=== PATIENT | female | born 1970 | race Caucasian/White ===

== ENCOUNTER 2021-07-14 10:34 | Emergency (ER) | payer OTHER, SELFPAY ==
[2021-07-14 10:55] VITALS: BP 115/64; PULSE 76; RESP 16; TEMP 36.9; O2SAT 99; BMI 15.6
[2021-07-14 11:30] VITALS: BP 116/71; PULSE 73; O2SAT 99
[2021-07-14 11:51] LABS: Basophils # 0.1 K/mm3 (0-0.2); Basophils % 0.6 % (0.1-2.0); Eosinophils # 0.1 K/mm3 (0.0-0.4); Hematocrit 29.5 % (37.0-47.0); Hemoglobin 9.8 g/dL (12.2-16.2); Lymphocytes # 1.3 K/mm3 (0.7-4.5); Lymphocytes % 14.6 % (10-50); Mean Corpuscular HGB Conc 33.4 g/dL (31.8-35.4); Mean Corpuscular Hemoglobin 31.2 pg (27.0-31.2); Mean Corpuscular Volume 93.5 fl (81-99); Mean Platelet Volume 7.9 fl (7.4-10.4); Monocytes # 0.6 K/mm3 (0.1-1.0); Monocytes % 6.5 % (1.7-9.3); Neutrophils # 6.9 K/mm3 (1.8-7.8); Neutrophils % 77.3 % (37.0-80.0); Platelet Count 152 K/mm3 (142-424); Red Blood Count 3.16 M/mm3 (4.20-5.40); Red Cell Distribution Width 19.8 % (11.5-17.5); White Blood Count 8.9 K/mm3 (4.8-10.8)
[2021-07-14 11:53] LABS: Alanine Aminotransferase 21 U/L (12-78); Albumin Level 3.4 g/dl (3.5-5.0); Albumin/Globulin Ratio 1.1 (1.1-1.8); Alkaline Phosphatase 256 U/L (38-126); Anion Gap 8.5 mEq/L (5-15); Aspartate Amino Transferase 80 U/L (14-36); Bilirubin,Total 1.9 mg/dl (0.2-1.3); Blood Urea Nitrogen 18 mg/dl (7-17); Calcium 8.1 mg/dl (8.4-10.2); Carbon Dioxide 32 mmol/L (22.0-30.0); Chloride 91 mmol/L (98-107); Creatinine Clearance Estimated 48 mL/min (50-200); Estimated Glomerular Filt Rate 59 ml/min (>60); GFR (African American) 71 ML/MIN (>60); Globulin 3.2 g/dL (1.3-3.2); Glucose 100 mg/dl (74-100); Sodium 129 mmol/L (136-145); Total Protein,Serum 6.6 g/dl (6.3-8.2)
[2021-07-14 11:56] LABS: Potassium 2.5 mmoL/L (3.5-5.1)
--- NOTE | 2021-07-14 11:58 | PC.NURSE ---
potassium 2.5 repeated and verified with lab. Notified MD
--- NOTE | 2021-07-14 12:06 | HMH.EDGENADL ---
ED Disposition Clinical Impression: Alcoholic cirrhosis of liver with ascites, Hypokalemia, Hypomagnesemia Disposition: Home, Self-Care Condition on Discharge: Fair Additional Instructions: Return tomorrow 9 AM to radiology for paracentesis. Take an extra potassium tablet each day for the next week. Magnesium as prescribed. You are being provided with a list of physicians available for follow-up of your condition. Please call a physician on this list to arrange a follow-up appointment as soon as possible. Follow-up with Dr. Farrell, gynecology, for your left breast problems. Prescriptions: Magnesium Oxide 400 mg PO DAILY #7 tab Transmission Status: Pending to [id number] Referrals: Provider,Referral, [Primary Care Provider] - - Critical Care Critical Care Time: No Attestation: On 07/14/21, the high probability of a clinically significant, sudden or life threatening deterioration of the following system(s) required my full and direct attention, intervention and personal management. The time I documented below is in addition to time spent performing reported procedures but includes the following listed in this critical care notation. Medical Decision Making - Adalid Inquiry Pt receiving controlled substance: No Vital Signs: 07/14/21 10:55 07/14/21 11:30 Temperature 98.5 F Temperature Source Oral Pulse Rate 73 Pulse Rate [Left Radial] 76 Respiratory Rate 16 Blood Pressure 116/71 Blood Pressure [Right Arm] 115/64 Blood Pressure Mean [Right Arm] 81 02 Sat by Pulse Oximetry 99 99 Oxygen Delivery Method Room Air - Lab Data Lab Results 07/14/21 11:25: WBC 8.9, RBC 3.16 L, Hgb 9.8 L, Hct 29.5 L, MCV 93.5, MCH 31.2, MCHC 33.4, RDW 19.8 H, Plt Count 152, MPV 7.9, Neut % (Auto) 77.3, Lymph % (Auto) 14.6, [place] % (Auto) 6.5, Eos % (Auto) 1.0, Baso % (Auto) 0.6, Neut # (Auto) 6.9, Lymph # (Auto) 1.3, [place] # (Auto) 0.6, Eos # (Auto) 0.1, Baso # (Auto) 0.1 07/14/21 11:25: Sodium 129 L, Potassium 2.5 L*, Chloride 91 L, Carbon Dioxide 32 H, Anion Gap 8.5, BUN 18 H, Creatinine 1.00, Estimated Creat Clear 48, Estimated GFR 59, Est GFR ( Amer) 71, Glucose 100, Calcium 8.1 L, Total Bilirubin 1.9 H, AST 80 H, ALT 21, Alkaline Phosphatase 256 H, Total Protein 6.6, Albumin 3.4 L, Globulin 3.2, Albumin/Globulin Ratio 1.1 07/14/21 11:25: Magnesium 1.4 L Result diagrams: 07/14/21 11:25 07/14/21 11:25 Orders (Tests/Meds): ED MEDICATIONS Discontinued Medications Generic Name Dose Route Start Last Admin Trade Name Freq PRN Reason Stop Dose Admin Potassium Chloride 60 meq 07/14/21 12:22 07/14/21 12:46 Potassium Chloride 20meq Tab PO 07/14/21 12:23 60 meq ONCE ONE Administration ORDERS Category Date Time Status PT/INR [Prothrombin Time INR] Stat Lab 07/14/21 11:25 Received - Physician Consults Physician Consulted: Willi Time: 12:45 Reason -: Surgical Eval/Care Comment/Response: Recommend stat paracentesis to be done by radiology under ultrasound guidance rather than emergent paracentesis by him. - Reevaluation(s) Time: 13:11 Reevaluation #1: Patient was standing and getting dressed, states her right is going to be here in 2 minutes and would like to be discharged. Medical Decision Narrative: 12:15 PM: Called radiology. Physician assistant professor of biochemistry for procedures is here on Sunday, Sunday, Sunday from 11:52. Can schedule paracentesis for tomorrow. Call also placed to general surgery. General Adult HPI - General Chief complaint: PAIN Stated complaint: abd pain,left breast, no accident Time Seen by Provider: 07/14/21 12:06 Mode of Arrival: Ambulatory Limitations: No Limitations Description of Symptoms (Recalled from ER Triage Doc. by RN): pt to ed c/o left breast pain and abd pain. pt states she has cirrhosis and gets a paracentisis every two weeks. pt reports lower abd pain and swelling. pt states she just moved here from [place] and has not establishe
[2021-07-14 12:17] LABS: Magnesium 1.4 mg/dl (1.6-2.3)
--- NOTE | 2021-07-14 12:17 | PC.NURSE ---
Called surgery suite for surgeon addiction social worker. BJ stated that Dr Márquez may be in surgery, but that she was sending him a message to return our call ANJANA.
[2021-07-14 13:11] LABS: INR 1.21 (0.9-1.1); Prothrombin Time 13.5 seconds (10.1-12.5)
[2021-07-14 13:14] VITALS: BP 120/78; PULSE 71; RESP 17; TEMP 36.9; O2SAT 99
== END 2021-07-14 13:36 | disposition home or self-care (01) ==
PROVIDERS: Emergency Provider Emergency Medicine
DX: K70.31 Alcoholic cirrhosis of liver with ascites (principal); N64.4 Mastodynia; E87.6 Hypokalemia; E83.42 Hypomagnesemia
CPT/HCPCS: 36415; 80053; 83735; 85025; 85610; 99282

== ENCOUNTER 2021-07-15 09:09 | Outpatient (CLI) | payer OTHER, SELFPAY ==
--- NOTE | 2021-07-15 09:16 | US_ITS ---
FINAL REPORT CLINICAL HISTORY: ASCITES FINDINGS: ULTRASOUND-GUIDED PARACENTESIS HISTORY: Ascites ATTENDING PHYSICIAN: Dr. Hodgson PHYSICIAN BRAND MGR: Rico Vásquez PA-C FINDINGS: After informed consent was obtained and timeout procedure performed, fluid was localized in the right lower quadrant under ultrasound guidance and marked on the skin appropriately. The patient was then prepped and draped in the usual sterile fashion and the skin was anesthetized with 1% lidocaine. An ultrasound guided paracentesis was then performed using a Turkel needle. Approximately6.7 liters of clear yellow fluid was removed. No fluid was sent to lab. The patient tolerated the procedure well and there were no immediate complications. IMPRESSION: Ultrasound guided right lower quadrant paracentesis as discussed above. Films reviewed , interpreted and dictated by Dr. Hodgson. Transcribed by Rico Vásquez PA-C. Reviewed, Interpreted and Dictated by Jason Hodgson III, MD Transcribed by ARGELIA Giles Authenticated by Jason Hodgson III, MD on 07/15/2021 11:37:49 AM [facility]
[2021-07-15 10:38] VITALS: BMI 14.7
[2021-07-15 11:11] LABS: Creatinine Clearance Estimated 65 mL/min (50-200); Estimated Glomerular Filt Rate 89 ml/min (>60); GFR (African American) 107 ML/MIN (>60)
[2021-07-15 11:45] VITALS: BP 99/74; PULSE 83; RESP 18; O2SAT 100
[2021-07-15 12:25] VITALS: BP 90/58; PULSE 83; RESP 18
== END 2021-07-15 12:25 | disposition home or self-care (01) ==
LOC: RAD 09:13 → INF 10:43
PROVIDERS: Visit Provider Emergency Medicine
DX: K70.31 Alcoholic cirrhosis of liver with ascites (principal)
CPT/HCPCS: 49083; 82565; 96365; P9047

== ENCOUNTER 2021-08-05 00:29 | Emergency (ER) | payer OTHER, SELFPAY ==
[2021-08-05 00:25] VITALS: BP 95/68; PULSE 97; RESP 18; TEMP 36.7; O2SAT 97; BMI 15.6
--- NOTE | 2021-08-05 00:31 | ECG_ITS ---
APPROVED REPORT Exam: Resting ECG HR:94 bpm ECG Measurements Heart Rate 94 AXES TX 152 P 53 QRSd 88 QRS 35 QT 360 T 69 QTc 412 Conclusion SINUS RHYTHM LOW QRS VOLTAGE IN EXTREMITY LEADS [QRS DEFLECTION < 0.5 mV IN LIMB LEADS] BORDERLINE ECG UNCONFIRMED REPORT Electronically signed by : Mohinder Trujillo MD 08/05/2021 16:01:59
[2021-08-05 00:36] VITALS: BMI 15.6
--- NOTE | 2021-08-05 00:37 | CT_ITS ---
PROCEDURE INFORMATION: Exam: CT Abdomen And Pelvis With Contrast Exam date and time: 08/05/2021 12:37 AM Age: 51 years old Clinical indication: Patient HX: Vomiting that started today. PT states she had fluid drained from abdomen 2 weeks ago, has since gotten worse. Also states she is scheduled to have fluid drained again later today. ; Additional info: Vomitting TECHNIQUE: Imaging protocol: Computed tomography of the abdomen and pelvis with contrast. Radiation optimization: All CT scans at this facility use at least one of these dose optimization techniques: automated exposure control; mA and/or kV adjustment per patient size (includes targeted exams where dose is matched to clinical indication); or iterative reconstruction. Contrast material: ISOVUE; Contrast volume: 75 ml; Contrast route: IV; COMPARISON: US PARACENTESIS 07/15/2021 9:25 AM FINDINGS: Heart: Atherosclerotic calcification of the visualized proximal left anterior descending coronary artery. Mediastinal space: Fluid distention of the visualized distal esophagus, possibly reflux and/or dysmotility. Liver: Nodular hepatic peripheral contour, compatible with cirrhosis. Gallbladder and bile ducts: Cholelithiasis, without CT evidence of acute cholecystitis. Pancreas: Normal. Spleen: Splenic calcifications, compatible with prior granulomatous disease. Mild splenomegaly. Adrenal glands: Normal. No mass. Kidneys and ureters: Minimal lobular area of cortical thinning of the right kidney, likely scarring. Stomach and bowel: Colonic diverticulosis. Moderate, diffuse wall thickening of the entire colon, likely edema related to ascites and/or hypoproteinemic state. Multiple loops of nondilated, gas and fluid-filled small bowel, possibly mild enteritis. Appendix: Appendix normal. Intraperitoneal space: Large volume ascites, secondary to cirrhosis. Vasculature: Atherosclerotic disease of the abdominal aorta and iliac arteries. Phleboliths within the pelvis. Lymph nodes: Unremarkable. No enlarged lymph nodes. Urinary bladder: Unremarkable as visualized. Reproductive: Unremarkable as visualized. Bones/joints: No acute abnormality. Soft tissues: Normal. IMPRESSION: 1. Cirrhosis, with associated splenomegaly and large volume ascites. 2. Fluid distention of the visualized distal esophagus, possibly reflux and/or dysmotility. 3. Moderate, diffuse wall thickening of the entire colon, likely edema related to ascites and/or hypoproteinemic state. 4. Multiple loops of nondilated, gas and fluid-filled small bowel, possibly mild enteritis.
--- NOTE | 2021-08-05 00:48 | HMH.EDNVD ---
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 The time I documented below is in addition to time spent performing reported procedures but includes the following listed in this critical care notation. Total Critical Care Time: 60 Vital system(s) involved:: Shock (Hemorrhage) My critical care processes included: Assessment & monitoring of V/S, Initial and Re-exams, Coordinating Care, Medication Orders and management, Documentation Medical Decision Making - Medical Records Medical records reviewed: Yes: I reviewed the patient's medical records. - Adalid Inquiry Pt receiving controlled substance: No Vital Signs: 08/05/21 00:25 08/05/21 00:55 08/05/21 02:00 Temperature 98.0 F Temperature Source Oral Pulse Rate 99 H 91 H Pulse Rate [Right] 97 H Respiratory Rate 18 Blood Pressure 100/65 L 95/66 L Blood Pressure [Right Arm] 95/68 L Blood Pressure Mean Blood Pressure Mean [Right Arm] 77 02 Sat by Pulse Oximetry 97 99 100 Oxygen Delivery Method Room Air Room Air 08/05/21 02:30 Temperature Temperature Source Pulse Rate 98 H Pulse Rate [Right] Respiratory Rate Blood Pressure 109/76 L Blood Pressure [Right Arm] Blood Pressure Mean 87 Blood Pressure Mean [Right Arm] 02 Sat by Pulse Oximetry 100 Oxygen Delivery Method - Lab Data Lab results reviewed: Yes: I reviewed the patient's lab results. Lab Results 08/05/21 00:40: WBC 12.6 H, RBC 3.10 L, Hgb 9.6 L, Hct 30.8 L, MCV 99.4 H, MCH 30.9, MCHC 31.1 L, RDW 17.9 H, Plt Count 322, MPV 7.8, Neut % (Auto) 78.6, Lymph % (Auto) 14.2, [place] % (Auto) 5.7, Eos % (Auto) 0.2, Baso % (Auto) 1.4, Neut # (Auto) 9.9 H, Lymph # (Auto) 1.8, [place] # (Auto) 0.7, Eos # (Auto) 0.0, Baso # (Auto) 0.2, ESR 71 H 08/05/21 00:40: Sodium 134 L, Potassium 3.4 L, Chloride 98, Carbon Dioxide 24, Anion Gap 15.4 H, BUN 13, Creatinine 1.00, Estimated Creat Clear 48, Estimated GFR 59, Est GFR ( Amer) 71, Glucose 102 H, Calcium 7.9 L, Total Bilirubin 1.3, AST 82 H, ALT 22, Alkaline Phosphatase 243 H, C-Reactive Protein 17.9 H, Total Protein 6.6, Albumin 3.4 L, Globulin 3.2, Albumin/Globulin Ratio 1.1, Amylase 126 H, Lipase 183, Procalcitonin 0.153 08/05/21 00:40: Ammonia < 9 L 08/05/21 00:40: Lactate 2.7 H 08/05/21 00:40: PT 12.5, INR 1.12 H 08/05/21 00:40: Magnesium 1.6 08/05/21 01:55: Gastric Occult Blood Positive 08/05/21 02:31: SARS-CoV-2 (PCR) Not detected, Influenza A Untype (PCR) Not detected, Influenza Type B (PCR) Not detected Result diagrams: 08/05/21 00:40 08/05/21 00:40 Orders (Tests/Meds): ED MEDICATIONS Generic Name Dose Route Start Last Admin Trade Name Jeredq PRN Reason Stop Dose Admin Sodium Chloride 1,000 mls @ 999 mls/hr 08/05/21 00:45 08/05/21 01:02 Sod Chlor 0.9% 1000ml Bag IV 08/05/21 01:45 999 mls/hr .Q1H1M DEREK Administration Octreotide Acetate 500 mcg/ 255 mls @ 25.5 mls/hr 08/05/21 03:45 08/05/21 03:38 Sodium Chloride IV 09/04/21 03:44 25.5 mls/hr .Q10H DEREK Administration 50 MCG/HR Ceftriaxone Sodium 1 gm/ 50 mls @ 100 mls/hr 08/05/21 03:45 08/05/21 03:37 Sodium Chloride IV 08/19/21 03:44 100 mls/hr Q24H DEREK Administration Sodium Chloride 8 ml 08/05/21 00:47 Sodium Chloride 0.9% 10ml Vial IV 09/04/21 00:46 NEEDED PRN dilute pepcid Discontinued Medications Generic Name Dose Rout
--- NOTE | 2021-08-05 00:53 | PC.NURSE ---
contacted [facility] to request records for procedure dine 2 weeks ago
[2021-08-05 00:55] VITALS: BP 100/65; PULSE 99; O2SAT 99
[2021-08-05 00:57] LABS: Basophils # 0.2 K/mm3 (0-0.2); Basophils % 1.4 % (0.1-2.0); Eosinophils % 0.2 % (0.1-12.0); Hematocrit 30.8 % (37.0-47.0); Hemoglobin 9.6 g/dL (12.2-16.2); Lymphocytes # 1.8 K/mm3 (0.7-4.5); Lymphocytes % 14.2 % (10-50); Mean Corpuscular HGB Conc 31.1 g/dL (31.8-35.4); Mean Corpuscular Hemoglobin 30.9 pg (27.0-31.2); Mean Corpuscular Volume 99.4 fl (81-99); Mean Platelet Volume 7.8 fl (7.4-10.4); Monocytes # 0.7 K/mm3 (0.1-1.0); Monocytes % 5.7 % (1.7-9.3); Neutrophils # 9.9 K/mm3 (1.8-7.8); Neutrophils % 78.6 % (37.0-80.0); Platelet Count 322 K/mm3 (142-424); Red Cell Distribution Width 17.9 % (11.5-17.5); White Blood Count 12.6 K/mm3 (4.8-10.8)
[2021-08-05 01:01] LABS: Chloride 98 mmol/L (98-107); Potassium 3.4 mmoL/L (3.5-5.1); Sodium 134 mmol/L (136-145)
[2021-08-05 01:04] LABS: Alanine Aminotransferase 22 U/L (12-78); Alkaline Phosphatase 243 U/L (38-126); Amylase 126 U/L (30-110); Anion Gap 15.4 mEq/L (5-15); Aspartate Amino Transferase 82 U/L (14-36); Bilirubin,Total 1.3 mg/dl (0.2-1.3); Blood Urea Nitrogen 13 mg/dl (7-17); Carbon Dioxide 24 mmol/L (22.0-30.0); Creatinine Clearance Estimated 48 mL/min (50-200); Estimated Glomerular Filt Rate 59 ml/min (>60); GFR (African American) 71 ML/MIN (>60)
[2021-08-05 01:05] LABS: Albumin Level 3.4 g/dl (3.5-5.0); Albumin/Globulin Ratio 1.1 (1.1-1.8); Calcium 7.9 mg/dl (8.4-10.2); Globulin 3.2 g/dL (1.3-3.2); Glucose 102 mg/dl (74-100); INR 1.12 (0.9-1.1); Lipase 183 U/L (23-300); Magnesium 1.6 mg/dl (1.6-2.3); Prothrombin Time 12.5 seconds (10.1-12.5); Total Protein,Serum 6.6 g/dl (6.3-8.2)
[2021-08-05 01:06] LABS: Ammonia < 9 umol/L (9-30)
[2021-08-05 01:10] LABS: C-Reactive Protein 17.9 mg/L (0-4)
[2021-08-05 01:15] LABS: Lactic Acid 2.7 mmol/L (0.7-2.1)
[2021-08-05 01:33] LABS: Erythrocyte Sedimentation Rate 71 mm/hr (0-20)
--- NOTE | 2021-08-05 01:36 | XR_ITS ---
PROCEDURE INFORMATION: Exam: XR Chest Exam date and time: 08/05/2021 1:36 AM Age: 51 years old Clinical indication: Other: Vomiting TECHNIQUE: Imaging protocol: XR of the chest. Views: 1 view. COMPARISON: CT ABDOMEN PELVIS W CON 08/05/2021 1:35 AM FINDINGS: Lungs: Probable calcified granuloma within the right midlung zone. Minimal bibasilar atelectasis. Pleural spaces: Unremarkable. No pleural effusion. No pneumothorax. Heart/Mediastinum: Normal. Bones/joints: No acute abnormality. IMPRESSION: No acute cardiopulmonary abnormality.
[2021-08-05 01:43] LABS: Procalcitonin 0.153 ng/mL (0.0-2.0)
[2021-08-05 02:00] VITALS: BP 95/66; PULSE 91; O2SAT 100
[2021-08-05 02:06] LABS: Occult Blood,Gastric Fluid Positive (Negative)
[2021-08-05 02:30] VITALS: BP 109/76; PULSE 98; O2SAT 100
[2021-08-05 02:35] LABS: Coronavirus 19, PCR Not Detected (NotDetected); Influenza A, PCR Not Detected (NotDetected); Influenza B, PCR Not Detected (NotDetected)
--- NOTE | 2021-08-05 03:26 | PC.NURSE ---
called transfer center and they are RED alert and not accepting any pts @ this time
--- NOTE | 2021-08-05 03:33 | PC.NURSE ---
edda on phone with dr jain @ this time. pt placed on waiting list.
--- NOTE | 2021-08-05 04:01 | PC.NURSE ---
0304 pt called out for assistance. pt had vomited multiple large blood clots. pt was changed, the bedding was also changed. pt was then given warm blankets and resting
[2021-08-05 04:07] VITALS: BP 103/78; PULSE 100; RESP 20; TEMP 37.1; O2SAT 99
[2021-08-05 04:09] VITALS: BP 109/80; PULSE 100; RESP 18; TEMP 36.7; O2SAT 99
== END 2021-08-05 04:37 | disposition short-term general hospital (02) ==
PROVIDERS: Emergency Provider Emergency Medicine
DX: R18.8 Other ascites (principal); K74.60 Unspecified cirrhosis of liver; Z79.1 Long term (current) use of non-steroidal anti-inflammatories (NSAID); Z79.51 Long term (current) use of inhaled steroids; Z79.899 Other long term (current) drug therapy; Z88.1 Allergy status to other antibiotic agents; Z88.3 Allergy status to other anti-infective agents; Z88.8 Allergy status to other drugs, medicaments and biological substances
CPT/HCPCS: 71045; 74177; 80053; 82140; 82150; 82272; 83605; 83690; 83735; 84145; 85025; 85610; 85651; 86140; 93005; 96361; 96365; 96366; 96367; 96374; 96375; 96376; 99285; C9803; G0328; J0696; J2354; J2405; Q9967; U0003; U0005

== ENCOUNTER 2021-08-14 15:47 | Emergency (ER) | payer OTHER, SELFPAY ==
[2021-08-14] VITALS (9 sets, daily range): BP systolic 101–120; BP diastolic 73–85; PULSE 63–91; RESP 10–18; TEMP 36.8–37.3; O2SAT 98–100; BMI 15.6
--- NOTE | 2021-08-14 | ECG_ITS ---
APPROVED REPORT Exam: Resting ECG HR:75 bpm ECG Measurements Heart Rate 75 AXES MT 146 P 60 QRSd 78 QRS 30 QT 384 T 62 QTc 412 Conclusion SINUS RHYTHM LOW QRS VOLTAGE IN EXTREMITY LEADS [QRS DEFLECTION < 0.5 mV IN LIMB LEADS] BORDERLINE ECG UNCONFIRMED REPORT Electronically signed by : Mohinder Trujillo MD 08/15/2021 13:42:54
--- NOTE | 2021-08-14 16:00 | PC.NURSE ---
pt is sitting up in bed. Nurse is bedside. Tech is bedside. Patient was hooked up to cardiac monitoring and vital signs. Call light given to patient. Warm blanket also given to patient at this time.
--- NOTE | 2021-08-14 16:18 | HMH.EDGENADL ---
ED Disposition Clinical Impression: Ascites, Abdominal pain, Alcoholic cirrhosis of liver with ascites Disposition: Home, Self-Care Condition on Discharge: Fair Instructions: DI for Acute Abdominal Pain Referrals: Provider,Referral, [Primary Care Provider] - - Critical Care Critical Care Time: No Attestation: On 08/14/21, the high probability of a clinically significant, sudden or life threatening deterioration of the following system(s) required my full and direct attention, intervention and personal management. The time I documented below is in addition to time spent performing reported procedures but includes the following listed in this critical care notation. Medical Decision Making - Adalid Inquiry Pt receiving controlled substance: Yes Adalid was queried for this patient: No Risks and benefits of using a controlled substance: were discussed with pt by me Vital Signs: 08/14/21 15:48 08/14/21 15:59 08/14/21 16:00 Temperature 99.1 F Temperature Source Oral Pulse Rate 80 83 Pulse Rate [Right Radial] 91 H Respiratory Rate 18 17 14 Blood Pressure 115/77 101/76 L Blood Pressure [Right Arm] 115/77 Blood Pressure Mean [Right Arm] 89 Blood Pressure Source [Right Arm] Automatic Cuff Blood Pressure Position [Right Arm] Sitting 02 Sat by Pulse Oximetry 100 100 100 Oxygen Delivery Method Room Air Room Air Room Air 08/14/21 16:30 08/14/21 19:00 08/14/21 19:30 Temperature Temperature Source Pulse Rate 77 66 73 Pulse Rate [Right Radial] Respiratory Rate 13 10 L 11 L Blood Pressure 112/85 120/74 116/80 Blood Pressure [Right Arm] Blood Pressure Mean [Right Arm] Blood Pressure Source [Right Arm] Blood Pressure Position [Right Arm] 02 Sat by Pulse Oximetry 100 100 100 Oxygen Delivery Method Room Air Room Air Room Air 08/14/21 20:00 08/14/21 20:30 Temperature Temperature Source Pulse Rate 79 63 Pulse Rate [Right Radial] Respiratory Rate 12 13 Blood Pressure 115/73 115/76 Blood Pressure [Right Arm] Blood Pressure Mean [Right Arm] Blood Pressure Source [Right Arm] Blood Pressure Position [Right Arm] 02 Sat by Pulse Oximetry 100 100 Oxygen Delivery Method Room Air Room Air - Lab Data Lab Results 08/14/21 16:00: WBC 11.3 H, RBC 3.24 L, Hgb 10.1 L, Hct 32.5 L, MCV 100.4 H, MCH 31.2, MCHC 31.1 L, RDW 18.2 H, Plt Count 246, MPV 8.0, Neut % (Auto) 76.2, Lymph % (Auto) 12.6, [place] % (Auto) 9.5 H, Eos % (Auto) 0.8, Baso % (Auto) 1.0, Neut # (Auto) 8.6 H, Lymph # (Auto) 1.4, [place] # (Auto) 1.1 H, Eos # (Auto) 0.1, Baso # (Auto) 0.1 08/14/21 16:00: PT 13.6 H, INR 1.22 H, APTT 33.6 H 08/14/21 16:00: Sodium 126 L, Potassium 3.9, Chloride 98, Carbon Dioxide 20 L, Anion Gap 11.9, BUN 12, Creatinine 1.20 H, Estimated Creat Clear 40, Estimated GFR 48 L, Est GFR ( Amer) 58 L, Glucose 86, Calcium 7.7 L, Total Bilirubin 1.4 H, AST 63 H, ALT 22, Alkaline Phosphatase 257 H, Total Protein 6.6, Albumin 3.3 L, Globulin 3.3 H, Albumin/Globulin Ratio 1.0 L 08/14/21 16:00: Lactate 2.1 08/14/21 16:00: Lipase 95 08/14/21 16:44: SARS-CoV-2 (PCR) Not detected, Influenza A Untype (PCR) Not detected, Influenza Type B (PCR) Not detected 08/14/21 19:50: Lactate 1.7 08/14/21 20:05: Urine Color Yellow, Urine Appearance Clear, Urine pH 6.5, Ur Specific [place] 1.010, Urine Protein Negative, Urine Glucose (UA) Negative, Urine Ketones Negative, Urine Blood Trace-l, Urine Nitrate Negative, Urine Bilirubin Negative, Urine Urobilinogen 0.2, Ur Leukocyte Esterase Negative, Urine RBC 5-10, Urine WBC 3-5, Ur Squamous Epith Cells 5-10, Urine Bacteria Trace 08/14/21 20:39: Fluid Source Peritoneal fluid, Fluid Volume 24, Fluid Appearance Normal, Fluid RBC (Auto) < 10, Fld Tot Nucleated Cell 39, Fld Polynuclear WBCs % 0, Fld Mononuclear WBCs % 100 Result diagrams: 08/14/21 16:00 08/14/21 16:00 Orders (Tests/Meds): ED MEDICATIONS Generic Name Dose Route Start Last Admin Trade Name Freq PRN
--- NOTE | 2021-08-14 16:26 | CT_ITS ---
PROCEDURE INFORMATION: Exam: CT Abdomen And Pelvis With Contrast Exam date and time: 08/14/2021 4:26 PM Age: 51 years old Clinical indication: Bloating; Additional info: Abd pain and distention TECHNIQUE: Imaging protocol: Computed tomography of the abdomen and pelvis with contrast. Radiation optimization: All CT scans at this facility use at least one of these dose optimization techniques: automated exposure control; mA and/or kV adjustment per patient size (includes targeted exams where dose is matched to clinical indication); or iterative reconstruction. Contrast material: ISOVUE; Contrast volume: 75 ml; Contrast route: IV; COMPARISON: CT ABDOMEN PELVIS W CON 08/05/2021 1:35 AM FINDINGS: Liver: There is a persistent large amount of ascites demonstrated throughout the abdomen and pelvis extending from the perihepatic space and perisplenic space inferiorly to the cul-de-sac. The extent of ascites is unchanged. Previously demonstrated nodular contour of the liver is unchanged. Cirrhosis and associated splenomegaly. Findings unchanged. Gallbladder and bile ducts: Cholelithiasis. The gallbladder is moderately distended on the current study. Pancreas: Normal. No ductal dilation. Spleen: Splenomegaly. Overall findings unchanged. Persistent splenic granulomas again demonstrated. Adrenal glands: Normal. No mass. Kidneys and ureters: The persistent lobulation of the right renal contour with thinning of the cortex. Findings unchanged. Right kidney measures approximately 8 cm in length. Left kidney measures approximately 9.4 cm in length. Stomach and bowel: Scattered colonic diverticula again demonstrated. Previously demonstrated bowel wall thickening is again identified. There is mild enhancement of the bowel wall. The and Appendix: No evidence of appendicitis. Intraperitoneal space: See Liver finding. Vasculature: Extensive regions of atherosclerotic vascular calcification involving the abdominal aorta and iliac arteries. Findings stable. Calcified phleboliths again demonstrated. Lymph nodes: Unremarkable. No enlarged lymph nodes. Urinary bladder: Unremarkable as visualized. Reproductive: Unremarkable as visualized. Bones/joints: Unremarkable. No acute fracture. Soft tissues: Unremarkable. IMPRESSION: 1. Cirrhosis with demonstration of persistent large amount of ascites throughout the abdomen and pelvis. 2. Persistent bowel wall thickening. Associated mild enhancement of the bowel wall. Findings most likely secondary to portal hypertension. Could not exclude superimposed mild changes of colitis.
[2021-08-14 16:28] LABS: Basophils # 0.1 K/mm3 (0-0.2); Chloride 98 mmol/L (98-107); Eosinophils # 0.1 K/mm3 (0.0-0.4); Eosinophils % 0.8 % (0.1-12.0); Hematocrit 32.5 % (37.0-47.0); Hemoglobin 10.1 g/dL (12.2-16.2); Lymphocytes # 1.4 K/mm3 (0.7-4.5); Lymphocytes % 12.6 % (10-50); Mean Corpuscular HGB Conc 31.1 g/dL (31.8-35.4); Mean Corpuscular Hemoglobin 31.2 pg (27.0-31.2); Mean Corpuscular Volume 100.4 fl (81-99); Monocytes # 1.1 K/mm3 (0.1-1.0); Monocytes % 9.5 % (1.7-9.3); Neutrophils # 8.6 K/mm3 (1.8-7.8); Neutrophils % 76.2 % (37.0-80.0); Platelet Count 246 K/mm3 (142-424); Potassium 3.9 mmoL/L (3.5-5.1); Red Blood Count 3.24 M/mm3 (4.20-5.40); Red Cell Distribution Width 18.2 % (11.5-17.5); Sodium 126 mmol/L (136-145); White Blood Count 11.3 K/mm3 (4.8-10.8)
[2021-08-14 16:30] LABS: Alanine Aminotransferase 22 U/L (12-78); Aspartate Amino Transferase 63 U/L (14-36); Blood Urea Nitrogen 12 mg/dl (7-17); Creatinine Clearance Estimated 40 mL/min (50-200); Estimated Glomerular Filt Rate 48 ml/min (>60); GFR (African American) 58 ML/MIN (>60); Lipase 95 U/L (23-300)
[2021-08-14 16:31] LABS: Albumin Level 3.3 g/dl (3.5-5.0); Alkaline Phosphatase 257 U/L (38-126); Anion Gap 11.9 mEq/L (5-15); Bilirubin,Total 1.4 mg/dl (0.2-1.3); Calcium 7.7 mg/dl (8.4-10.2); Carbon Dioxide 20 mmol/L (22.0-30.0); Globulin 3.3 g/dL (1.3-3.2); Glucose 86 mg/dl (74-100); Total Protein,Serum 6.6 g/dl (6.3-8.2)
[2021-08-14 16:33] LABS: Lactic Acid 2.1 mmol/L (0.7-2.1)
[2021-08-14 16:34] LABS: Activated Partial Thrombo Time 33.6 seconds (22.8-30.6); INR 1.22 (0.9-1.1); Prothrombin Time 13.6 seconds (10.1-12.5)
--- NOTE | 2021-08-14 16:51 | PC.NURSE ---
pt to CT scan
[2021-08-14 16:52] LABS: Coronavirus 19, PCR Not Detected (NotDetected); Influenza A, PCR Not Detected (NotDetected); Influenza B, PCR Not Detected (NotDetected)
--- NOTE | 2021-08-14 16:54 | PC.NURSE ---
covid swab obtained
--- NOTE | 2021-08-14 17:11 | PC.NURSE ---
PT IN CT RESTARTED IV
--- NOTE | 2021-08-14 17:16 | PC.NURSE ---
pt back from CT scan; hooked back up to vital signs and cardiac monitoring.
--- NOTE | 2021-08-14 17:18 | PC.NURSE ---
warm blanket given to patient.
[2021-08-14 19:40] LABS: Reflex Lactic Add Lactic Reflex
[2021-08-14 20:07] LABS: Lactic Acid Follow Up (RFLX 1) 1.7 mmol/L (0.7-2.1)
[2021-08-14 20:09] LABS: Microscopic, Urine URINE MICROSCOPIC (MICROSCOPIC)
[2021-08-14 20:11] LABS: Appearance,Urine CLEAR (Clear); Bilirubin,Urine Negative (Negative); Blood, Urine TRACE-L (Negative); Color,Urine YELLOW (Yellow); Glucose,Urine (UA) Negative (Negative); Ketones,Urine Negative (Negative); Leukocyte Esterase,Urine Negative (Negative); Nitrate,Urine Negative (Negative); PH,Urine 6.5 (5.0-8.5); Protein,Urine Negative (Negative); Urobilinogen,Urine 0.2 EU/dl (0.2)
[2021-08-14 20:21] LABS: Bacteria,Urine Trace /lpf
--- NOTE | 2021-08-14 20:44 | PC.NURSE ---
2043 pt resting comfortably after DR Cordero initiated her paracentesis. 2 liters out at this time
--- NOTE | 2021-08-14 21:10 | PC.NURSE ---
tap complete 4l taken off. tube removed and dressed with non adhere and tegaderm
[2021-08-14 21:14] LABS: Appearance,Body Fld. Normal; RBC,Body Fluid < 10 cells/uL (< 10 X 10^3); Source, Body Fld. Peritoneal Fluid; TNC,Body Fluid 39 cells/uL (< 1000); Volume,Body Fld. 24 mL
[2021-08-14 21:35] LABS: Mononuclear WBCs,Body Fluid 100 %; Polynuclear WBC,Body Fluid 0 %
== END 2021-08-14 21:56 | disposition home or self-care (01) ==
PROVIDERS: Emergency Provider Student in an Organized Health Care Education/Training Program
DX: K70.31 Alcoholic cirrhosis of liver with ascites (principal); K76.6 Portal hypertension; Z79.899 Other long term (current) drug therapy
CPT/HCPCS: 49082; 74177; 80053; 81001; 83605; 83690; 85025; 85610; 85730; 87070; 87205; 89051; 93005; 96365; 96375; 96376; 99284; C9803; Q9967; U0003; U0005

== ENCOUNTER 2021-08-16 13:32 | Emergency (ER) | payer OTHER, SELFPAY ==
[2021-08-16 13:33] VITALS: BP 91/56; PULSE 81; RESP 18; TEMP 36.8; O2SAT 97; BMI 15.6
--- NOTE | 2021-08-16 14:21 | HMH.EDSKAF ---
ED Disposition Clinical Impression: Puncture wound of abdomen Qualifiers: Encounter type: sequela Qualified Code(s): S31.139S - Puncture wound of abdominal wall without foreign body, unspecified quadrant without penetration into peritoneal cavity, sequela Disposition: Home, Self-Care Condition on Discharge: Good Instructions: DI for Puncture Wound Additional Instructions: follow up pcp 5-7 days, return for fever, abd pain, redness, sweling, any worseing Prescriptions: Amoxicillin/Potassium Clav [Amox-Clav 875-125 mg Tablet] 1 tab PO BID #20 tab Transmission Status: Pending to [id number] Referrals: Provider,Referral, [Primary Care Provider] - - Critical Care Critical Care Time: No Attestation: On 08/16/21, the high probability of a clinically significant, sudden or life threatening deterioration of the following system(s) required my full and direct attention, intervention and personal management. The time I documented below is in addition to time spent performing reported procedures but includes the following listed in this critical care notation. Medical Decision Making - Medical Records Medical records reviewed: Yes: I reviewed the patient's medical records. - Adalid Inquiry Pt receiving controlled substance: No Vital Signs: 08/16/21 13:33 Temperature 98.2 F Temperature Source Oral Pulse Rate [Right Radial] 81 Respiratory Rate 18 Blood Pressure [Right Arm] 91/56 L Blood Pressure Mean [Right Arm] 67 Blood Pressure Source [Right Arm] Automatic Cuff Blood Pressure Position [Right Arm] Sitting 02 Sat by Pulse Oximetry 97 Oxygen Delivery Method Room Air Medical Decision Narrative: rt abdomen puncture wound closed with dermabond/steristrips Skin/Abscess/FB HPI - General Chief complaint: Skin/Abscess/Foreign Body Stated complaint: abd surgery 08/12, drainage Time Seen by Provider: 08/16/21 14:21 Mode of Arrival: Ambulatory Limitations: No Limitations Description of Symptoms (Recalled from ER Triage Doc. by RN): pt reports she had a paracentesis done on Sunday of this week, states wound from paracentesis has been weeping since leaving ER on sunday. Pt reports weeping from wound got worse yesterday. Pt has gauze on wound upon arrival to ED, gauze is wet upon arrival, drainage is SS in color. - History of Present Illness HPI narrative: draining puncture wound from paracentesis here 3 days ago Severity: moderate Relieving factors: none Exacerbating factors: none Associated symptoms: denies other symptoms - Related Data Home Medications Medication Instructions Recorded Confirmed Albuterol Sulfate [Proair 90 mcg PO Q4-6H 07/14/21 08/05/21 Respiclick] Citalopram Hydrobromide [Celexa] 20 mg PO DAILY 07/14/21 08/05/21 Furosemide [Lasix 20mg tab] 20 mg PO BID 07/14/21 08/05/21 Hydrocod/Acet 5/325 mg [Story 1 tab PO Q6 07/14/21 08/05/21 5/325mg tablet] Ibuprofen [Ibuprofen 600mg 600 mg PO Q6 07/14/21 08/05/21 Tablet] Lactulose [Lactulose 20gm/30ml 30 ml PO DAILY 07/14/21 08/05/21 Oral Soln] Levothyroxine Sodium 175 mcg PO DIRECTED 07/14/21 08/05/21 [Levothyroxine 175mcg (0.175mg) Tab] Levothyroxine Sodium 100 mcg PO DIRECTED 07/14/21 08/05/21 [Levothyroxine] Mirabegron [Myrbetriq] 25 mg PO DAILY 07/14/21 08/05/21 Ondansetron [Zofran 4mg ODT] 4 mg PO Q8 07/14/21 08/05/21 Potassium Chloride 10 meq PO DAILY 07/14/21 08/05/21 Promethazine HCl [Phenergan 25mg 25 mg PO Q6 07/14/21 08/05/21 tab] Spironolactone 100 mg PO DAILY 07/14/21 08/05/21 Valacyclovir HCl [Valtrex] 1,000 mg PO NEEDED PRN 07/14/21 08/05/21 Magnesium Oxide 400 mg PO DAILY 08/05/21 08/05/21 Previous Rx's Medication Instructions Recorded Amoxicillin/Potassium Clav 1 tab PO BID #20 tab 08/16/21 [Amox-Clav 875-125 mg Tablet] Allergies Allergy/AdvReac Type Severity Reaction Status Date / Time bacitracin Allergy Mild Verified 07/14/21 11:18
[2021-08-16 14:34] VITALS: BP 101/60; PULSE 80; RESP 18; TEMP 36.8; O2SAT 98
== END 2021-08-16 14:35 | disposition home or self-care (01) ==
PROVIDERS: Emergency Provider Emergency Medicine
DX: S31.139A Puncture wound of abdominal wall without foreign body, unspecified quadrant without penetration into peritoneal cavity, initial encounter (principal); Z79.1 Long term (current) use of non-steroidal anti-inflammatories (NSAID); Z79.899 Other long term (current) drug therapy; Z88.8 Allergy status to other drugs, medicaments and biological substances
CPT/HCPCS: 99282

== ENCOUNTER 2021-08-23 09:09 | Emergency (ER) | payer OTHER, SELFPAY ==
[2021-08-23 09:10] VITALS: BP 116/74; PULSE 93; RESP 18; TEMP 36.5; O2SAT 100; BMI 15.6
[2021-08-23 09:17] VITALS: BP 116/74
--- NOTE | 2021-08-23 09:32 | HMH.EDGENADL ---
ED Disposition Clinical Impression: Alcoholic cirrhosis of liver with ascites Ascites Qualifiers: Ascites type: due to alcoholic cirrhosis Qualified Code(s): K70.31 - Alcoholic cirrhosis of liver with ascites Disposition: Home, Self-Care Condition on Discharge: Good Additional Instructions: Follow-up with your liver doctor at [facility]. Please also go to your care appointment next week. Prescriptions: hydrOXYzine HCL [Hydroxyzine HCl] 25 mg PO DAILY #15 tab Transmission Status: Received by [facility]ference Referrals: Mohinder Trujillo MD [Primary Care Provider] - - Critical Care Critical Care Time: No Attestation: On 08/23/21, the high probability of a clinically significant, sudden or life threatening deterioration of the following system(s) required my full and direct attention, intervention and personal management. The time I documented below is in addition to time spent performing reported procedures but includes the following listed in this critical care notation. Medical Decision Making - Medical Records Medical records reviewed: Yes: I reviewed the patient's medical records. - Adalid Inquiry Pt receiving controlled substance: No Vital Signs: 08/23/21 09:10 08/23/21 09:17 08/23/21 11:55 Temperature 97.7 F Temperature Source Oral Pulse Rate Pulse Rate [Left Radial] 93 H Respiratory Rate 18 Blood Pressure 116/74 110/77 Blood Pressure [Right Arm] 116/74 Blood Pressure Mean 80 86 Blood Pressure Mean [Right Arm] 88 Blood Pressure Source [Right Arm] Automatic Cuff Blood Pressure Position [Right Arm] Sitting 02 Sat by Pulse Oximetry 100 Oxygen Delivery Method Room Air 08/23/21 13:30 08/23/21 14:00 Temperature 97.7 F Temperature Source Pulse Rate 74 74 Pulse Rate [Left Radial] Respiratory Rate 20 Blood Pressure 114/77 114/77 Blood Pressure [Right Arm] Blood Pressure Mean 91 Blood Pressure Mean [Right Arm] Blood Pressure Source [Right Arm] Blood Pressure Position [Right Arm] 02 Sat by Pulse Oximetry 100 Oxygen Delivery Method Room Air - Lab Data Lab results reviewed: Yes: I reviewed the patient's lab results. Lab Results 08/23/21 09:40: WBC 7.6, RBC 3.31 L, Hgb 10.2 L, Hct 32.6 L, MCV 98.4, MCH 30.8, MCHC 31.3 L, RDW 17.7 H, Plt Count 192, MPV 8.2, Neut % (Auto) 82.1 H, Lymph % (Auto) 10.0, [place] % (Auto) 6.5, Eos % (Auto) 0.5, Baso % (Auto) 0.9, Neut # (Auto) 6.3, Lymph # (Auto) 0.8, [place] # (Auto) 0.5, Eos # (Auto) 0.0, Baso # (Auto) 0.1 08/23/21 09:40: Sodium 128 L, Potassium 4.2, Chloride 101, Carbon Dioxide 18 L, Anion Gap 13.2, BUN 11, Creatinine 0.70, Estimated Creat Clear 69, Estimated GFR 89, Est GFR ( Amer) 107, Glucose 90, Calcium 8.0 L, Total Bilirubin 1.3, AST 84 H, ALT 24, Alkaline Phosphatase 258 H, Total Protein 6.6, Albumin 3.2 L, Globulin 3.4 H, Albumin/Globulin Ratio 0.9 L 08/23/21 09:40: PT 12.4, INR 1.11 H 08/23/21 09:40: Lactate 3.0 H 08/23/21 11:30: Fluid Source Peritoneal fluid, Fluid Volume 22, Fluid Appearance Normal, Fluid RBC (Auto) < 10, Fld Tot Nucleated Cell 45, Fld Polynuclear WBCs % 1, Fld Mononuclear WBCs % 49 Result diagrams: 08/23/21 09:40 08/23/21 09:40 Orders (Tests/Meds): ED MEDICATIONS Discontinued Medications Generic Name Dose Route Start Last Admin Trade Name Alonso PRN Reason Stop Dose Admin Albumin Human 300 mls @ 100 mls/hr 08/23/21 10:00 08/23/21 12:30 Albumin 25% (12.5gm) Soln 50ml Bottle IV 08/23/21 12:59 100 mls/hr ONCE ONE Administration Ketorolac Tromethamine 30 mg 08/23/21 13:04 08/23/21 13:44 Ketorolac 30mg/Ml Vial IV 08/23/21 13:05 30 mg ONCE ONE Administration Lorazepam 1 mg 08/23/21 09:34 08/23/21 09:50 Lorazepam 2mg/Ml Vial IV 08/23/21 09:35 1 mg ONCE ONE Administration Sodium Chloride 10 ml 08/23/21 09:34 Sodium Chloride 0.9% 10ml Vial IV 09/22/21 09:33 NEEDED PRN to Dilute Lorazepam inj ORDERS Ca
--- NOTE | 2021-08-23 09:54 | PC.NURSE ---
called pharmacy for albumin
[2021-08-23 10:07] LABS: Chloride 101 mmol/L (98-107); Potassium 4.2 mmoL/L (3.5-5.1); Sodium 128 mmol/L (136-145)
[2021-08-23 10:08] LABS: Basophils # 0.1 K/mm3 (0-0.2); Basophils % 0.9 % (0.1-2.0); Eosinophils % 0.5 % (0.1-12.0); Hematocrit 32.6 % (37.0-47.0); Hemoglobin 10.2 g/dL (12.2-16.2); Lymphocytes # 0.8 K/mm3 (0.7-4.5); Mean Corpuscular HGB Conc 31.3 g/dL (31.8-35.4); Mean Corpuscular Hemoglobin 30.8 pg (27.0-31.2); Mean Corpuscular Volume 98.4 fl (81-99); Mean Platelet Volume 8.2 fl (7.4-10.4); Monocytes # 0.5 K/mm3 (0.1-1.0); Monocytes % 6.5 % (1.7-9.3); Neutrophils # 6.3 K/mm3 (1.8-7.8); Neutrophils % 82.1 % (37.0-80.0); Platelet Count 192 K/mm3 (142-424); Red Blood Count 3.31 M/mm3 (4.20-5.40); Red Cell Distribution Width 17.7 % (11.5-17.5); White Blood Count 7.6 K/mm3 (4.8-10.8)
[2021-08-23 10:09] LABS: Alanine Aminotransferase 24 U/L (12-78); Aspartate Amino Transferase 84 U/L (14-36); Blood Urea Nitrogen 11 mg/dl (7-17); Creatinine Clearance Estimated 69 mL/min (50-200); Estimated Glomerular Filt Rate 89 ml/min (>60); GFR (African American) 107 ML/MIN (>60)
[2021-08-23 10:10] LABS: Albumin Level 3.2 g/dl (3.5-5.0); Albumin/Globulin Ratio 0.9 (1.1-1.8); Alkaline Phosphatase 258 U/L (38-126); Anion Gap 13.2 mEq/L (5-15); Bilirubin,Total 1.3 mg/dl (0.2-1.3); Carbon Dioxide 18 mmol/L (22.0-30.0); Globulin 3.4 g/dL (1.3-3.2); Glucose 90 mg/dl (74-100); Total Protein,Serum 6.6 g/dl (6.3-8.2)
[2021-08-23 10:15] LABS: INR 1.11 (0.9-1.1); Prothrombin Time 12.4 seconds (10.1-12.5)
--- NOTE | 2021-08-23 11:39 | PC.NURSE ---
pt resting well
[2021-08-23 11:55] VITALS: BP 110/77
[2021-08-23 12:23] LABS: Appearance,Body Fld. Normal; Source, Body Fld. Peritoneal Fluid; Volume,Body Fld. 22 mL
[2021-08-23 12:28] LABS: RBC,Body Fluid < 10 cells/uL (< 10 X 10^3); TNC,Body Fluid 45 cells/uL (< 1000)
[2021-08-23 13:30] VITALS: BP 114/77; PULSE 74; O2SAT 100
[2021-08-23 13:53] LABS: Reflex Lactic Add Lactic Reflex
[2021-08-23 13:53] LABS: Polynuclear WBC,Body Fluid 1 %
[2021-08-23 14:00] VITALS: BP 114/77; PULSE 74; RESP 20; TEMP 36.5; O2SAT 100
[2021-08-23 14:10] LABS: Mononuclear WBCs,Body Fluid 49 %
== END 2021-08-23 14:01 | disposition home or self-care (01) ==
PROVIDERS: Emergency Provider Emergency Medicine; PCP Internal Medicine Adolescent Medicine
DX: K70.31 Alcoholic cirrhosis of liver with ascites (principal)
CPT/HCPCS: 49082; 80053; 83605; 85025; 85610; 87070; 87205; 89051; 96365; 96375; 99285; P9047

== ENCOUNTER 2021-08-24 10:48 | Emergency (ER) | payer OTHER, SELFPAY ==
[2021-08-24 10:59] VITALS: BP 103/63; PULSE 75; RESP 17; TEMP 36.7; O2SAT 100; BMI 15.6
--- NOTE | 2021-08-24 11:07 | ECG_ITS ---
APPROVED REPORT Exam: Resting ECG HR:107 bpm ECG Measurements Heart Rate 107 AXES MS 125 P 27 QRSd 81 QRS -4 QT 351 T 24 QTc 414 Conclusion SINUS TACHYCARDIA LOW QRS VOLTAGE IN EXTREMITY LEADS [QRS DEFLECTION < 0.5 mV IN LIMB LEADS] POSSIBLE ANTERIOR MYOCARDIAL INFARCTION , OF INDETERMINATE AGE [30 ms Q WAVE IN V3/V4, OR R < 0.2 mV IN V4] ABNORMAL ECG UNCONFIRMED REPORT Electronically signed by : Mohinder Trujillo MD 08/24/2021 18:12:00
[2021-08-24 11:26] LABS: Basophils # 0.1 K/mm3 (0-0.2); Basophils % 0.8 % (0.1-2.0); Eosinophils # 0.1 K/mm3 (0.0-0.4); Eosinophils % 0.6 % (0.1-12.0); Hematocrit 28.1 % (37.0-47.0); Hemoglobin 8.9 g/dL (12.2-16.2); Lymphocytes # 1.1 K/mm3 (0.7-4.5); Lymphocytes % 11.1 % (10-50); Mean Corpuscular HGB Conc 31.7 g/dL (31.8-35.4); Mean Corpuscular Hemoglobin 30.6 pg (27.0-31.2); Mean Corpuscular Volume 96.5 fl (81-99); Monocytes # 0.7 K/mm3 (0.1-1.0); Monocytes % 6.9 % (1.7-9.3); Neutrophils # 7.7 K/mm3 (1.8-7.8); Neutrophils % 80.6 % (37.0-80.0); Platelet Count 186 K/mm3 (142-424); Red Blood Count 2.91 M/mm3 (4.20-5.40); Red Cell Distribution Width 17.9 % (11.5-17.5); White Blood Count 9.5 K/mm3 (4.8-10.8)
[2021-08-24 11:29] LABS: Chloride 101 mmol/L (98-107); Potassium 3.4 mmoL/L (3.5-5.1); Sodium 129 mmol/L (136-145)
[2021-08-24 11:32] LABS: Alanine Aminotransferase 25 U/L (12-78); Albumin Level 3.2 g/dl (3.5-5.0); Albumin/Globulin Ratio 1.1 (1.1-1.8); Alkaline Phosphatase 253 U/L (38-126); Anion Gap 10.4 mEq/L (5-15); Aspartate Amino Transferase 71 U/L (14-36); Blood Urea Nitrogen 12 mg/dl (7-17); Calcium 8.1 mg/dl (8.4-10.2); Carbon Dioxide 21 mmol/L (22.0-30.0); Creatinine Clearance Estimated 60 mL/min (50-200); Estimated Glomerular Filt Rate 76 ml/min (>60); GFR (African American) 92 ML/MIN (>60); Globulin 2.8 g/dL (1.3-3.2); Glucose 106 mg/dl (74-100)
--- NOTE | 2021-08-24 11:54 | PC.NURSE ---
notified ER MD of pt vomitting approx 400 mL of brown-red blood ER MD gave verbal order for second IV, type and cross match
--- NOTE | 2021-08-24 12:18 | HMH.EDGENADL ---
ED Disposition Clinical Impression: Alcoholic cirrhosis of liver with ascites Bleeding esophageal varices Qualifiers: Esophageal varices type: secondary Qualified Code(s): I85.11 - Secondary esophageal varices with bleeding Disposition: Left Against Medical Advice Condition on Discharge: Serious Referrals: Mohinder Trujillo MD [Primary Care Provider] - - Critical Care Critical Care Time: Yes Attestation: On 08/24/21, the high probability of a clinically significant, sudden or life threatening deterioration of the following system(s) required my full and direct attention, intervention and personal management. The time I documented below is in addition to time spent performing reported procedures but includes the following listed in this critical care notation. Total Critical Care Time: 45 Vital system(s) involved:: Circulatory Failure My critical care processes included: Assessment & monitoring of V/S, Initial and Re-exams, Data Review/Interpretation, Coordinating Care, Medication Orders and management, Documentation Medical Decision Making - Medical Records Medical records reviewed: Yes: I reviewed the patient's medical records. MR Comment: Reviewed discharge summary from recent admission to [facility] for variceal bleeding. See below. - Adalid Inquiry Pt receiving controlled substance: Yes Adalid was queried for this patient: No Risks and benefits of using a controlled substance: were not discussed with pt by me Vital Signs: 08/24/21 10:59 08/24/21 12:44 08/24/21 15:19 Temperature 98.1 F Temperature Source Oral Pulse Rate 95 H 92 H Pulse Rate [Right Radial] 75 Respiratory Rate 17 Blood Pressure 96/50 L 112/67 Blood Pressure [Right Arm] 103/63 L Blood Pressure Mean 65 80 Blood Pressure Mean [Right Arm] 76 02 Sat by Pulse Oximetry 100 99 100 Oxygen Delivery Method Room Air - Lab Data Lab Results 08/24/21 11:15: WBC 9.5, RBC 2.91 L, Hgb 8.9 L, Hct 28.1 L, MCV 96.5, MCH 30.6, MCHC 31.7 L, RDW 17.9 H, Plt Count 186, MPV 8.0, Neut % (Auto) 80.6 H, Lymph % (Auto) 11.1, [place] % (Auto) 6.9, Eos % (Auto) 0.6, Baso % (Auto) 0.8, Neut # (Auto) 7.7, Lymph # (Auto) 1.1, [place] # (Auto) 0.7, Eos # (Auto) 0.1, Baso # (Auto) 0.1 08/24/21 11:15: Sodium 129 L, Potassium 3.4 L, Chloride 101, Carbon Dioxide 21 L, Anion Gap 10.4, BUN 12, Creatinine 0.80, Estimated Creat Clear 60, Estimated GFR 76, Est GFR ( Amer) 92, Glucose 106 H, Calcium 8.1 L, Total Bilirubin 1.0, AST 71 H, ALT 25, Alkaline Phosphatase 253 H, Total Protein 6.0 L, Albumin 3.2 L, Globulin 2.8, Albumin/Globulin Ratio 1.1 08/24/21 11:15: PT 12.5, INR 1.12 H, APTT 30.1 08/24/21 12:09: Blood Type O Negative, Antibody Screen Negative, Crossmatch (AHG) See Detail 08/24/21 14:05: SARS-CoV-2 (PCR) Not detected, Influenza A Untype (PCR) Not detected, Influenza Type B (PCR) Not detected 08/24/21 14:45: WBC 8.9, RBC 2.53 L, Hgb 7.8 L D, Hct 24.2 L, MCV 95.6, MCH 31.3 H, MCHC 32.8, RDW 18.0 H, Plt Count 166, MPV 8.3, Neut % (Auto) 78.9, Lymph % (Auto) 13.0, [place] % (Auto) 7.4, Eos % (Auto) 0.2, Baso % (Auto) 0.5, Neut # (Auto) 7.0, Lymph # (Auto) 1.2, [place] # (Auto) 0.7, Eos # (Auto) 0.0, Baso # (Auto) 0.0 08/24/21 14:45: Lactate 1.7 Result diagrams: 08/24/21 14:45 08/24/21 11:15 Orders (Tests/Meds): ED MEDICATIONS Generic Name Dose Route Start Last Admin Trade Name Freq PRN Reason Stop Dose Admin Octreotide Acetate 500 mcg/ 255 mls @ 25.5 mls/hr 08/24/21 12:00 08/24/21 12:22 Sodium Chloride IV 09/23/21 11:59 25.5 mls/hr .Q10H DEREK Administration 50 MCG/HR Pantoprazole Sodium 80 mg/ 100 mls @ 10 mls/hr 08/24/21 13:15 08/24/21 15:04 Sodium Chloride IV 08/27/21 13:14 Not Given .Q10H DEREK Sodium Chloride 250 mls @ 25 mls/hr 08/24/21 16:00 Sod Chlor 0.9% 250ml Bag IV 08/25/21 15:59 .Q10H DEREK Sodium Chloride 10 ml 08/24/21 11:08 Sodium Chloride 0.9% 10ml Flush Syringe IV 09/23/21 11:07
[2021-08-24 12:44] VITALS: BP 96/50; PULSE 95; O2SAT 99
--- NOTE | 2021-08-24 12:49 | PC.NURSE ---
Pt refused to have head CT, stated that she has had multiple CT's this past year.
[2021-08-24 12:58] LABS: Activated Partial Thrombo Time 30.1 seconds (22.8-30.6); INR 1.12 (0.9-1.1); Prothrombin Time 12.5 seconds (10.1-12.5)
--- NOTE | 2021-08-24 13:18 | PC.NURSE ---
EDUARDO RINALDI speaking with [facility]
[2021-08-24 14:12] LABS: Coronavirus 19, PCR Not Detected (NotDetected); Influenza A, PCR Not Detected (NotDetected); Influenza B, PCR Not Detected (NotDetected)
[2021-08-24 15:07] LABS: Basophils % 0.5 % (0.1-2.0); Eosinophils % 0.2 % (0.1-12.0); Hematocrit 24.2 % (37.0-47.0); Lymphocytes # 1.2 K/mm3 (0.7-4.5); Mean Corpuscular HGB Conc 32.8 g/dL (31.8-35.4); Mean Corpuscular Hemoglobin 31.3 pg (27.0-31.2); Mean Corpuscular Volume 95.6 fl (81-99); Mean Platelet Volume 8.3 fl (7.4-10.4); Monocytes # 0.7 K/mm3 (0.1-1.0); Monocytes % 7.4 % (1.7-9.3); Neutrophils % 78.9 % (37.0-80.0); Platelet Count 166 K/mm3 (142-424); Red Blood Count 2.53 M/mm3 (4.20-5.40); White Blood Count 8.9 K/mm3 (4.8-10.8)
[2021-08-24 15:19] VITALS: BP 112/67; PULSE 92; O2SAT 100
[2021-08-24 15:19] LABS: Hemoglobin 7.8 g/dL (12.2-16.2); Lactic Acid 1.7 mmol/L (0.7-2.1)
--- NOTE | 2021-08-24 16:24 | PC.NURSE ---
notified lab of order for blood transfusion, spoke with patricia
--- NOTE | 2021-08-24 17:17 | PC.NURSE ---
Called lab to check status of blood. They advised it would be ready in approx. 45 mins. I updated pt on POC, and that MD still did not want her to have anything by mouth at this time. Pt repositioned in and tv was turned on.
[2021-08-24 17:18] VITALS: BP 92/58; PULSE 85; RESP 13; O2SAT 100
--- NOTE | 2021-08-24 17:30 | PC.NURSE ---
pt hit call light for staff assistance. ed staff entered pt room and pt states she wants to leave against medical advice and not transfer to [facility]. pt states i have some serious decisions to make with my family. i do not want to be sick anymore. i appreciate all the care you all have provided for me and i thank you all for being so kind but i want to go home and talk to my family about the decisions ahead for my care. rn notified md who spoke with the patient regarding risks of bleeding and the risks of leaving. pt states she is aware of the risks and wants to leave the hospital. pt signed ama paper and [facility] transfer center was notified.
[2021-08-24 18:27] VITALS: BP 92/58; PULSE 85; RESP 13; TEMP 36.7; O2SAT 100
== END 2021-08-24 18:29 | disposition left against medical advice (07) ==
PROVIDERS: Emergency Provider Emergency Medicine; PCP Internal Medicine Adolescent Medicine
DX: K70.31 Alcoholic cirrhosis of liver with ascites (principal); I85.11 Secondary esophageal varices with bleeding; K76.6 Portal hypertension; J44.9 Chronic obstructive pulmonary disease, unspecified; E06.3 Autoimmune thyroiditis; F41.8 Other specified anxiety disorders; Z79.899 Other long term (current) drug therapy
CPT/HCPCS: 36415; 80053; 83605; 85025; 85610; 85730; 86850; 93005; 96365; 96367; 96372; 99284; C9803; J2354; J2405; U0003; U0005

== ENCOUNTER 2021-09-07 07:54 | Outpatient (CLI) | payer OTHER, SELFPAY ==
--- NOTE | 2021-09-07 08:03 | US_ITS ---
FINAL REPORT CLINICAL HISTORY: ASCITES-- 7700 ml-- rico solano-- sent to infusion-- no labs FINDINGS: ULTRASOUND-GUIDED PARACENTESIS HISTORY: Ascites ATTENDING PHYSICIAN: Dr. Hodgson PHYSICIAN [employer] LAWYER: Rico Vásquez PA-C FINDINGS: After informed consent was obtained and timeout procedure performed, fluid was localized in the right lower quadrant under ultrasound guidance and marked on the skin appropriately. The patient was then prepped and draped in the usual sterile fashion and the skin was anesthetized with 1% lidocaine. An ultrasound guided paracentesis was then performed using a Turkel needle. Approximately 7.7 liters of clear yellow fluid was removed. No fluid was sent to lab. The patient tolerated the procedure well and there were no immediate complications. IMPRESSION: Ultrasound guided right lower quadrant paracentesis as discussed above. Films reviewed , interpreted and dictated by Dr. Hodgson. Transcribed by Rico Vásquez PA-C. Reviewed, Interpreted and Dictated by Jason Hodgson III, MD Transcribed by ARGELIA Giles Authenticated by Jason Hodgson III, MD on 09/07/2021 11:30:39 AM [facility]
[2021-09-07 10:25] VITALS: BP 97/48; PULSE 68; RESP 18; O2SAT 97
[2021-09-07 10:54] VITALS: BP 100/52; PULSE 71; RESP 18
[2021-09-07 12:00] VITALS: BP 84/43; PULSE 71; RESP 18
[2021-09-07 12:32] VITALS: BP 98/56; PULSE 71; RESP 18
== END 2021-09-07 12:32 | disposition home or self-care (01) ==
LOC: RAD 07:55 → INF 10:33
PROVIDERS: PCP Internal Medicine Adolescent Medicine
DX: R18.8 Other ascites (principal)
CPT/HCPCS: 49083; 96365; 96366; P9047

== ENCOUNTER 2021-09-09 11:00 | Emergency (ER) | payer OTHER, SELFPAY ==
[2021-09-09] VITALS (8 sets, daily range): BP systolic 74–100; BP diastolic 40–65; PULSE 62–78; RESP 14–22; TEMP 36.6; O2SAT 96–100; BMI 15.6
--- NOTE | 2021-09-09 11:14 | HMH.EDABDPAI ---
ED Disposition Clinical Impression: Hypokalemia Abdominal pain Qualifiers: Abdominal location: periumbilical Qualified Code(s): R10.33 - Periumbilical pain Hypotension Qualifiers: Hypotension type: hypotension due to hypovolemia Qualified Code(s): I95.89 - Other hypotension Disposition: Home, Self-Care Condition on Discharge: Fair Instructions: Acute Abdominal Pain, Hypokalemia Additional Instructions: Turn to the emergency department if you feel worse in any way. Your work-up today showed that you had low potassium. I highly recommend that you follow-up with your primary care doctor early next week to have your potassium level checked again. Continue taking all medications as prescribed. Prescriptions: Dicyclomine HCl [Bentyl 10mg capsule] 10 mg PO QID PRN #24 cap PRN Reason: Abdominal Distention Transmission Status: Pending to [id number] Referrals: Mohinder Trujillo MD [Primary Care Provider] - - Critical Care Critical Care Time: No Attestation: On , the high probability of a clinically significant, sudden or life threatening deterioration of the following system(s) required my full and direct attention, intervention and personal management. The time I documented below is in addition to time spent performing reported procedures but includes the following listed in this critical care notation. Medical Decision Making - Medical Records Medical records reviewed: Yes: I reviewed the patient's medical records. - Adalid Inquiry Pt receiving controlled substance: No Vital Signs: 09/09/21 11:01 09/09/21 11:32 09/09/21 11:34 Temperature 98 F Temperature Source Oral Pulse Rate 65 Pulse Rate [Orthostatic Lying] 68 Pulse Rate [Orthostatic Sitting] 62 Pulse Rate [Radial] 68 Respiratory Rate 22 14 Blood Pressure 89/58 L Blood Pressure [Orthostatic Lying] 83/45 L Blood Pressure [Orthostatic Sitting] 74/40 L Blood Pressure [Right Arm] 83/45 L Blood Pressure Mean 66 Blood Pressure Mean [Right Arm] 57 Blood Pressure Position [Right Arm] Supine 02 Sat by Pulse Oximetry 96 99 Oxygen Delivery Method Room Air Room Air 09/09/21 11:53 09/09/21 12:30 09/09/21 13:00 Temperature Temperature Source Pulse Rate 65 68 63 Pulse Rate [Orthostatic Lying] Pulse Rate [Orthostatic Sitting] Pulse Rate [Radial] Respiratory Rate 16 14 16 Blood Pressure 88/56 L 100/64 L 92/64 L Blood Pressure [Orthostatic Lying] Blood Pressure [Orthostatic Sitting] Blood Pressure [Right Arm] Blood Pressure Mean 65 76 72 Blood Pressure Mean [Right Arm] Blood Pressure Position [Right Arm] 02 Sat by Pulse Oximetry 100 100 100 Oxygen Delivery Method 09/09/21 13:30 Temperature Temperature Source Pulse Rate 64 Pulse Rate [Orthostatic Lying] Pulse Rate [Orthostatic Sitting] Pulse Rate [Radial] Respiratory Rate 14 Blood Pressure 95/61 L Blood Pressure [Orthostatic Lying] Blood Pressure [Orthostatic Sitting] Blood Pressure [Right Arm] Blood Pressure Mean 73 Blood Pressure Mean [Right Arm] Blood Pressure Position [Right Arm] 02 Sat by Pulse Oximetry 100 Oxygen Delivery Method - Lab Data Lab results reviewed: Yes: I reviewed the patient's lab results. Lab Results 09/09/21 11:30: WBC 7.7, RBC 2.68 L, Hgb 7.7 L, Hct 24.0 L, MCV 89.5, MCH 28.6, MCHC 31.9, RDW 18.3 H, Plt Count 239, MPV 7.7, Neut % (Auto) 74.2, Lymph % (Auto) 16.7, [place] % (Auto) 7.8, Eos % (Auto) 0.7, Baso % (Auto) 0.6, Neut # (Auto) 5.7, Lymph # (Auto) 1.3, [place] # (Auto) 0.6, Eos # (Auto) 0.1, Baso # (Auto) 0.1 09/09/21 11:30: PT 13.5 H, INR 1.21 H, APTT 30.5 09/09/21 11:30: Sodium 131 L, Potassium 2.4 L*, Chloride 97 L, Carbon Dioxide 25, Anion Gap 11.4, BUN 15, Creatinine 1.20 H, Estimated Creat Clear 40, Estimated GFR 48 L, Est GFR ( Amer) 58 L, Glucose 91, Calcium 7.2 L, Total Bilirubin 0.8, AST 59 H, ALT 23, Alkaline Phosphatase 192 H, Total Protein 5.9 L, Albumin 3.1 L, Glob
--- NOTE | 2021-09-09 11:50 | PC.NURSE ---
ORTHO VS DID NOT STAND PT DUE TO C/O DIZZINESS AND LOW B/P
[2021-09-09 11:54] LABS: Alanine Aminotransferase 23 U/L (12-78); Albumin Level 3.1 g/dl (3.5-5.0); Albumin/Globulin Ratio 1.1 (1.1-1.8); Alkaline Phosphatase 192 U/L (38-126); Anion Gap 11.4 mEq/L (5-15); Aspartate Amino Transferase 59 U/L (14-36); Bilirubin,Total 0.8 mg/dl (0.2-1.3); Blood Urea Nitrogen 15 mg/dl (7-17); Calcium 7.2 mg/dl (8.4-10.2); Carbon Dioxide 25 mmol/L (22.0-30.0); Chloride 97 mmol/L (98-107); Creatinine Clearance Estimated 40 mL/min (50-200); Estimated Glomerular Filt Rate 48 ml/min (>60); GFR (African American) 58 ML/MIN (>60); Globulin 2.8 g/dL (1.3-3.2); Glucose 91 mg/dl (74-100); Sodium 131 mmol/L (136-145); Total Protein,Serum 5.9 g/dl (6.3-8.2)
[2021-09-09 11:56] LABS: Lactic Acid 2.3 mmol/L (0.7-2.1)
[2021-09-09 11:57] LABS: Basophils # 0.1 K/mm3 (0-0.2); Basophils % 0.6 % (0.1-2.0); Eosinophils # 0.1 K/mm3 (0.0-0.4); Eosinophils % 0.7 % (0.1-12.0); Hemoglobin 7.7 g/dL (12.2-16.2); Lymphocytes # 1.3 K/mm3 (0.7-4.5); Lymphocytes % 16.7 % (10-50); Mean Corpuscular HGB Conc 31.9 g/dL (31.8-35.4); Mean Corpuscular Hemoglobin 28.6 pg (27.0-31.2); Mean Corpuscular Volume 89.5 fl (81-99); Mean Platelet Volume 7.7 fl (7.4-10.4); Monocytes # 0.6 K/mm3 (0.1-1.0); Monocytes % 7.8 % (1.7-9.3); Neutrophils # 5.7 K/mm3 (1.8-7.8); Neutrophils % 74.2 % (37.0-80.0); Platelet Count 239 K/mm3 (142-424); Potassium 2.4 mmoL/L (3.5-5.1); Red Blood Count 2.68 M/mm3 (4.20-5.40); Red Cell Distribution Width 18.3 % (11.5-17.5); White Blood Count 7.7 K/mm3 (4.8-10.8)
--- NOTE | 2021-09-09 11:57 | PC.NURSE ---
notified ER of critical potassium call by lab
[2021-09-09 12:07] LABS: Activated Partial Thrombo Time 30.5 seconds (22.8-30.6); INR 1.21 (0.9-1.1); Prothrombin Time 13.5 seconds (10.1-12.5)
--- NOTE | 2021-09-09 13:44 | PC.NURSE ---
Went in and had patient stand up. She advised she felt much better and that felt ok. Asked if she could try and eat something. Called dietary and ordered pt something to eat.
[2021-09-09 15:36] LABS: Reflex Lactic Add Lactic Reflex
== END 2021-09-09 17:10 | disposition home or self-care (01) ==
PROVIDERS: Emergency Provider Emergency Medicine; PCP Internal Medicine Adolescent Medicine
DX: R10.33 Periumbilical pain (principal); I95.89 Other hypotension; E87.6 Hypokalemia; Z79.899 Other long term (current) drug therapy
CPT/HCPCS: 80053; 83605; 85025; 85610; 85730; 87040; 96360; 96365; 96375; 99284; J2405

== ENCOUNTER 2021-09-26 12:16 | Emergency (ER) | payer OTHER, SELFPAY ==
[2021-09-26 12:17] VITALS: BP 88/58; PULSE 88; RESP 22; TEMP 37; O2SAT 98; BMI 15.6; BMI 16.1
--- NOTE | 2021-09-26 12:28 | PC.NURSE ---
IMAN Davidson at
--- NOTE | 2021-09-26 12:45 | HMH.EDGENADL ---
ED Disposition Clinical Impression: Left against medical advice Disposition: Left Against Medical Advice Condition on Discharge: Fair Instructions: DI for Acute Abdominal Pain Referrals: Mohinder Trujillo MD [Primary Care Provider] - - Critical Care Critical Care Time: No Attestation: On 09/26/21, the high probability of a clinically significant, sudden or life threatening deterioration of the following system(s) required my full and direct attention, intervention and personal management. The time I documented below is in addition to time spent performing reported procedures but includes the following listed in this critical care notation. Medical Decision Making - Medical Records Medical records reviewed: Yes: I reviewed the patient's medical records. - Adalid Inquiry Pt receiving controlled substance: No Vital Signs: 09/26/21 12:17 09/26/21 13:15 09/26/21 14:22 Temperature 98.6 F Temperature Source Oral Pulse Rate 71 70 Pulse Rate [Radial] 88 Respiratory Rate 22 Blood Pressure 83/58 L 95/67 L Blood Pressure [Right Arm] 88/58 L Blood Pressure Mean [Right Arm] 68 Blood Pressure Source Automatic Cuff Blood Pressure Position Supine Blood Pressure Position [Right Arm] Sitting 02 Sat by Pulse Oximetry 98 99 98 Oxygen Delivery Method Room Air Room Air Room Air 09/26/21 15:28 09/26/21 17:35 09/26/21 18:07 Temperature 98.5 F Temperature Source Oral Pulse Rate 71 69 67 Pulse Rate [Radial] Respiratory Rate 15 15 16 Blood Pressure 93/66 L 94/66 L 99/66 L Blood Pressure [Right Arm] Blood Pressure Mean [Right Arm] Blood Pressure Source Automatic Cuff Automatic Cuff Automatic Cuff Blood Pressure Position Sitting Sitting Sitting Blood Pressure Position [Right Arm] 02 Sat by Pulse Oximetry 99 95 Oxygen Delivery Method Room Air Room Air Room Air - Lab Data Lab results reviewed: Yes: I reviewed the patient's lab results. Lab Results 09/26/21 13:05: WBC 8.0, RBC 2.83 L, Hgb 7.6 L, Hct 23.3 L, MCV 82.2, MCH 26.8 L, MCHC 32.6, RDW 16.5, Plt Count 213, MPV 7.7, Neut % (Auto) 70.9, Lymph % (Auto) 18.4, [place] % (Auto) 9.2, Eos % (Auto) 1.2, Baso % (Auto) 0.3, Neut # (Auto) 5.7, Lymph # (Auto) 1.5, [place] # (Auto) 0.7, Eos # (Auto) 0.1, Baso # (Auto) 0.0 09/26/21 13:05: Sodium 129 L, Potassium 2.6 L*, Chloride 95 L, Carbon Dioxide 28, Anion Gap 8.6, BUN 19 H, Creatinine 1.00, Estimated Creat Clear 48, Estimated GFR 59, Est GFR ( Amer) 71, Glucose 101 H, Calcium 8.5, Total Bilirubin 1.0, AST 63 H, ALT 21, Alkaline Phosphatase 187 H, Troponin I < 0.01, Total Protein 6.2 L, Albumin 3.0 L, Globulin 3.2, Albumin/Globulin Ratio 0.9 L 09/26/21 13:05: Lactate 1.8 09/26/21 13:05: Ammonia 21 09/26/21 13:05: PT 12.1, INR 1.08 09/26/21 13:11: VBG pH 7.45 H, VBG pCO2 39.7, VBG pO2 36.5, VBG HCO3 27.0, VBG Total CO2 28.3 H, VBG O2 Saturation 68.8, VBG Base Excess 3.1 H 09/26/21 14:30: Magnesium 1.5 L 09/26/21 14:30: Phosphorus 3.6 09/26/21 14:30: SARS-CoV-2 (PCR) Not detected, Influenza A Untype (PCR) Not detected, Influenza Type B (PCR) Not detected 09/26/21 15:05: Lactate 1.4 Result diagrams: 09/26/21 13:05 09/26/21 13:05 Orders (Tests/Meds): ED MEDICATIONS Discontinued Medications Generic Name Dose Route Start Last Admin Trade Name Freq PRN Reason Stop Dose Admin Hydromorphone HCl 0.5 mg 09/26/21 19:44 Hydromorphone 2mg/Ml Syringe IV 09/26/21 19:45 ONCE ONE Potassium Chloride/Water 100 mls @ 50 mls/hr 09/26/21 15:00 09/26/21 15:15 Potassium Chloride 20meq/100ml Ivpb IV 09/26/21 20:59 50 mls/hr Q2H DEREK Administration Magnesium Sulfate 2 gm 09/26/21 15:41 Magnesium Sulfate In Water 2gm/50ml Premix IV 09/26/21 15:42 ONCE ONE Morphine Sulfate 4 mg 09/26/21 16:21 Morphine 8mg/Ml Syringe IV 09/26/21 16:22 ONCE ONE Ondansetron HCl 4 mg 09/26/21 16:21 Ondansetron 4mg/2ml Vial IV 09/26/21 16:22 ONCE ONE SARAH Mary
--- NOTE | 2021-09-26 12:55 | PC.NURSE ---
ED MD at
--- NOTE | 2021-09-26 13:13 | XR_ITS ---
FINAL REPORT TECHNIQUE: Chest PA & Lateral CLINICAL HISTORY: hypotension, assess for pna COMPARISON: August 05, 2021 FINDINGS: 2 views of the chest were performed. The heart size is normal. The mediastinum is within normal limits. There is some scarring in the lung bases. There is a calcified granuloma in the right upper lobe. There are no pleural effusions. There is no pneumothorax. The bony thorax appears intact. IMPRESSION: No acute cardiopulmonary process. Reviewed, Interpreted and Dictated by Suhas Chew MD Transcribed by Devon Holman Authenticated by Suhas Chew MD on 09/26/2021 03:06:[address] [facility]
[2021-09-26 13:15] VITALS: BP 83/58; PULSE 71; O2SAT 99
[2021-09-26 13:21] LABS: Basophils % 0.3 % (0.1-2.0); Eosinophils # 0.1 K/mm3 (0.0-0.4); Eosinophils % 1.2 % (0.1-12.0); Hematocrit 23.3 % (37.0-47.0); Hemoglobin 7.6 g/dL (12.2-16.2); Lymphocytes # 1.5 K/mm3 (0.7-4.5); Lymphocytes % 18.4 % (10-50); Mean Corpuscular HGB Conc 32.6 g/dL (31.8-35.4); Mean Corpuscular Hemoglobin 26.8 pg (27.0-31.2); Mean Corpuscular Volume 82.2 fl (81-99); Mean Platelet Volume 7.7 fl (7.4-10.4); Monocytes # 0.7 K/mm3 (0.1-1.0); Monocytes % 9.2 % (1.7-9.3); Neutrophils # 5.7 K/mm3 (1.8-7.8); Neutrophils % 70.9 % (37.0-80.0); Platelet Count 213 K/mm3 (142-424); Red Blood Count 2.83 M/mm3 (4.20-5.40); Red Cell Distribution Width 16.5 % (11.5-17.5)
[2021-09-26 13:23] LABS: Chloride 95 mmol/L (98-107); Sodium 129 mmol/L (136-145)
[2021-09-26 13:25] LABS: Potassium 2.6 mmoL/L (3.5-5.1)
--- NOTE | 2021-09-26 13:25 | PC.NURSE ---
Lab called with potassium of 2.6. Repeated, verified and report to
[2021-09-26 13:26] LABS: Alanine Aminotransferase 21 U/L (12-78); Albumin/Globulin Ratio 0.9 (1.1-1.8); Alkaline Phosphatase 187 U/L (38-126); Anion Gap 8.6 mEq/L (5-15); Aspartate Amino Transferase 63 U/L (14-36); Blood Urea Nitrogen 19 mg/dl (7-17); Carbon Dioxide 28 mmol/L (22.0-30.0); Creatinine Clearance Estimated 48 mL/min (50-200); Estimated Glomerular Filt Rate 59 ml/min (>60); GFR (African American) 71 ML/MIN (>60); Globulin 3.2 g/dL (1.3-3.2); Total Protein,Serum 6.2 g/dl (6.3-8.2)
[2021-09-26 13:27] LABS: Ammonia 21 umol/L (9-30); Calcium 8.5 mg/dl (8.4-10.2); Glucose 101 mg/dl (74-100); INR 1.08 (0.9-1.1); Lactic Acid 1.8 mmol/L (0.7-2.1); Prothrombin Time 12.1 seconds (10.1-12.5)
--- NOTE | 2021-09-26 13:41 | PC.NURSE ---
patient back from radiology
[2021-09-26 13:50] LABS: Troponin I < 0.01 ng/ml (0.00-0.034)
--- NOTE | 2021-09-26 13:56 | PC.NURSE ---
Called lab and asked for someone to collect BC. Notified resp of VBG
[2021-09-26 14:22] VITALS: BP 95/67; PULSE 70; O2SAT 98
[2021-09-26 14:36] LABS: VBG Base Excess 3.1 mmol/L (-2.4-2.3); VBG Oxygen Saturation 68.8 % (50-70); VBG PCO2 39.7 mmol/L (35-51); VBG PH 7.45 mmol/L (7.31-7.41); VBG PO2 36.5 mmol/L (28-40); VBG Total CO2 28.3 mmol/L (23-27)
--- NOTE | 2021-09-26 15:06 | ECG_ITS ---
APPROVED REPORT Exam: Resting ECG HR:70 bpm ECG Measurements Heart Rate 70 AXES NV 150 P 46 QRSd 85 QRS 18 QT 394 T 59 QTc 415 Conclusion SINUS RHYTHM LOW QRS VOLTAGE [QRS DEFLECTION < 0.5/1.0 mV IN LIMB/CHEST LEADS] Old anteroseptal changes ABNORMAL ECG UNCONFIRMED REPORT Electronically signed by : Mohinder Trujillo MD 09/29/2021 08:09:06
[2021-09-26 15:11] LABS: Magnesium 1.5 mg/dl (1.6-2.3); Phosphorous 3.6 mg/dl (2.5-4.5)
[2021-09-26 15:28] VITALS: BP 93/66; PULSE 71; RESP 15; O2SAT 99
[2021-09-26 15:32] LABS: Coronavirus 19, PCR Not Detected (NotDetected); Influenza A, PCR Not Detected (NotDetected); Influenza B, PCR Not Detected (NotDetected)
[2021-09-26 15:39] LABS: Lactic Acid 1.4 mmol/L (0.7-2.1)
--- NOTE | 2021-09-26 16:07 | PC.NURSE ---
rad staff at to transport pt to CT, pt states doesn't want to have CT scan r/t having multiple CT scans in the past couple months. Notified EDUARDO RINALDI
--- NOTE | 2021-09-26 16:12 | PC.NURSE ---
ED MD at speaking with patient
--- NOTE | 2021-09-26 16:55 | PC.NURSE ---
Called Dietary for a tray
[2021-09-26 17:35] VITALS: BP 94/66; PULSE 69; RESP 15; O2SAT 95
--- NOTE | 2021-09-26 17:35 | PC.NURSE ---
patient sitting up eating ham sandwich and chips at this time
[2021-09-26 18:07] VITALS: BP 99/66; PULSE 67; RESP 16; TEMP 36.9; O2SAT 99
--- NOTE | 2021-09-26 18:07 | PC.NURSE ---
After dealing with code, went in to round on patient and update her on POC and what was going on. Pt was not in room. IV tubing and IV catheter was laying in bed and patients personal belongings were gone. Assumed at this time patient had eloped.
== END 2021-09-26 18:10 | disposition left against medical advice (07) ==
LOC: ER 12:22
PROVIDERS: Emergency Provider Emergency Medicine; PCP Internal Medicine Adolescent Medicine
DX: R11.2 Nausea with vomiting, unspecified (principal); R42 Dizziness and giddiness; R30.0 Dysuria; I10 Essential (primary) hypertension; R19.7 Diarrhea, unspecified
CPT/HCPCS: 36415; 71046; 80053; 82140; 82803; 83605; 83735; 84100; 84484; 85025; 85610; 87040; 93005; 96360; 96361; 99284; C9803; U0003; U0005

== ENCOUNTER 2021-09-27 11:09 | Outpatient (RCR) | payer OTHER, SELFPAY | END 2021-09-27 11:10 | disposition home or self-care (01) | LOC: OT 11:09 | PROVIDERS: PCP Internal Medicine Adolescent Medicine; Visit Provider Internal Medicine Adolescent Medicine | DX: M25.512 Pain in left shoulder (principal) | CPT/HCPCS: 97535 ==

== ENCOUNTER 2021-09-28 10:11 | Outpatient (CLI) | payer OTHER, SELFPAY ==
--- NOTE | 2021-09-28 10:17 | US_ITS ---
FINAL REPORT CLINICAL HISTORY: ASCITES; paracentesis; 9400 ml peritoneal fluid drained fluid NOT sent for labs FINDINGS: ULTRASOUND-GUIDED PARACENTESIS HISTORY:Ascites ATTENDING PHYSICIAN: Dr. Chew PHYSICIAN DREDGE OPERATOR: Lincoln Harmon PA-C FINDINGS: After informed consent was obtained and timeout procedure performed, fluid was localized in the right lower quadrant under ultrasound guidance and marked on the skin appropriately. The patient was then prepped and draped in the usual sterile fashion and the skin was anesthetized with 1% lidocaine. An ultrasound guided paracentesis was then performed using a Turkel needle. Approximately 9.4 liters of fluid was removed. No fluid was sent to lab. The patient tolerated the procedure well and there were no immediate complications. IMPRESSION: Ultrasound guided right lower quadrant paracentesis as discussed above. Reviewed, Interpreted and Dictated by Suhas Chew MD Transcribed by ARGELIA Caldwell Authenticated by Suhas Chew MD on 09/30/2021 08:26:21 AM [facility]
[2021-09-28 11:12] VITALS: BMI 16.1
[2021-09-28 11:43] LABS: Creatinine Clearance Estimated 41 mL/min (50-200); Estimated Glomerular Filt Rate 53 ml/min (>60); GFR (African American) 64 ML/MIN (>60)
[2021-09-28 12:30] VITALS: BP 80/51; PULSE 68; RESP 18; TEMP 36.4; O2SAT 100
--- NOTE | 2021-09-28 12:30 | PC.NURSE ---
1230-pt states blood pressure is normally low she is not symptomatic. pt states she takes medication to increase blood pressure.
[2021-09-28 13:05] VITALS: BP 94/72; PULSE 67; RESP 18
[2021-09-28 13:35] VITALS: BP 88/51; PULSE 69; RESP 18
[2021-09-28 14:10] VITALS: BP 83/49; PULSE 64; RESP 18
== END 2021-09-28 14:10 | disposition home or self-care (01) ==
LOC: RAD 10:11 → INF 12:12
PROVIDERS: PCP Internal Medicine Adolescent Medicine; Visit Provider Internal Medicine Adolescent Medicine
DX: R18.8 Other ascites (principal); K70.9 Alcoholic liver disease, unspecified
CPT/HCPCS: 36415; 49083; 82565; 96365; P9047

== ENCOUNTER → 2021-10-06 13:51 | Outpatient (CLI) | payer OTHER, SELFPAY | PROVIDERS: PCP Internal Medicine Adolescent Medicine; Visit Provider Internal Medicine Adolescent Medicine | DX: Z71.3 Dietary counseling and surveillance (principal); E06.3 Autoimmune thyroiditis; K70.31 Alcoholic cirrhosis of liver with ascites | CPT/HCPCS: 97802 ==

== ENCOUNTER 2021-10-12 10:00 | Outpatient (CLI) | payer OTHER, SELFPAY ==
--- NOTE | 2021-10-12 10:02 | US_ITS ---
FINAL REPORT CLINICAL HISTORY: ASCITES FINDINGS: ULTRASOUND-GUIDED PARACENTESIS HISTORY:Ascites ATTENDING PHYSICIAN: Dr. Hodgson PHYSICIAN ALLIGATOR TRAPPER: Lincoln Harmon PA-C FINDINGS: After informed consent was obtained and timeout procedure performed, fluid was localized in the right lower quadrant under ultrasound guidance and marked on the skin appropriately. The patient was then prepped and draped in the usual sterile fashion and the skin was anesthetized with 1% lidocaine. An ultrasound guided paracentesis was then performed using a Turkel needle. Approximately 7 liters of fluid was removed. No fluid was sent to lab. The patient tolerated the procedure well and there were no immediate complications. IMPRESSION: Ultrasound guided right lower quadrant paracentesis as discussed above. Films reviewed , interpreted and dictated by Dr. Hodgson Transcribed by Lincoln Harmon PA-C. Reviewed, Interpreted and Dictated by Jason Hodgson III, MD Transcribed by ARGELIA Caldwell Authenticated by Jason Hodgson III, MD on 10/14/2021 11:08:29 AM [facility]
[2021-10-12 11:20] VITALS: BMI 16.0
[2021-10-12 11:54] LABS: Creatinine Clearance Estimated 26 mL/min (50-200); Estimated Glomerular Filt Rate 32 ml/min (>60); GFR (African American) 38 ML/MIN (>60)
[2021-10-12 12:25] VITALS: BP 78/47; PULSE 75; RESP 18; O2SAT 98
[2021-10-12 12:55] VITALS: BP 90/53; PULSE 76; RESP 18
[2021-10-12 13:25] VITALS: BP 84/49; PULSE 74; RESP 18
[2021-10-12 13:55] VITALS: BP 87/50; PULSE 76; RESP 18
[2021-10-12 14:20] VITALS: BP 83/47; PULSE 75; RESP 18
[2021-10-12 15:05] VITALS: BP 76/34; PULSE 78; RESP 18
== END 2021-10-12 15:05 | disposition home or self-care (01) ==
LOC: RAD 10:00 → INF 11:24
PROVIDERS: PCP Internal Medicine Adolescent Medicine; Visit Provider Internal Medicine Adolescent Medicine
DX: R18.8 Other ascites (principal)
CPT/HCPCS: 49083; 82565; 96365; 96366; P9047

== ENCOUNTER 2021-11-04 08:50 | Outpatient (CLI) | payer OTHER, SELFPAY ==
[2021-11-04] VITALS (7 sets, daily range): BP systolic 93–110; BP diastolic 61–68; PULSE 72–80; RESP 14–18; TEMP 36.3–36.4; O2SAT 96–97; BMI 17.0
--- NOTE | 2021-11-04 08:59 | US_ITS ---
FINAL REPORT CLINICAL HISTORY: ASCITES 7300 ml-- rico segura FINDINGS: ULTRASOUND-GUIDED PARACENTESIS HISTORY: Ascites ATTENDING PHYSICIAN: Dr. Hodgson PHYSICIAN SERVOMECHANISM DESIGNER: Rico Segura PA-C FINDINGS: After informed consent was obtained and timeout procedure performed, fluid was localized in the right lower quadrant under ultrasound guidance and marked on the skin appropriately. The patient was then prepped and draped in the usual sterile fashion and the skin was anesthetized with 1% lidocaine. An ultrasound guided paracentesis was then performed using a Turkel needle. Approximately 7.3 liters of clear yellow fluid was removed. No fluid was sent to lab. The patient tolerated the procedure well and there were no immediate complications. IMPRESSION: Ultrasound guided right lower quadrant paracentesis as discussed above. Films reviewed , interpreted and dictated by Dr. Hodgson. Transcribed by Rico Segura PA-C. Reviewed, Interpreted and Dictated by Jason Hodgson III, MD Transcribed by ARGELIA Giles Authenticated and [facility]
[2021-11-04 09:37] LABS: Creatinine Clearance Estimated 58 mL/min (50-200); Estimated Glomerular Filt Rate 66 ml/min (>60); GFR (African American) 80 ML/MIN (>60)
== END 2021-11-04 12:25 | disposition home or self-care (01) ==
LOC: INF 08:51
PROVIDERS: PCP Internal Medicine Adolescent Medicine; Visit Provider Internal Medicine Adolescent Medicine
DX: K70.31 Alcoholic cirrhosis of liver with ascites (principal)
CPT/HCPCS: 49083; 82565; 96365; P9047

== ENCOUNTER 2021-11-09 15:00 | Outpatient (RCR) | payer OTHER, SELFPAY ==
--- NOTE | 2021-10-19 13:28 | HMH.PTOPEV ---
PT Outpatient Evaluation Rehab PT Outpatient Evaluation Start: 10/19/21 11:06 Freq: Status: Active Protocol: Document 10/19/21 11:06 MARIBEL (Rec: 10/19/21 13:28 MARIBEL [id number]) Electronically Signed By Ileana Yusefct, SURAJ 10/19/21 11:06 Outpatient Therapy Subjective History Subjective History Pt is a 51 y/o female that reports right foot pain and that her gait/balance feel off . Pt reports fracturing 3 toes on the right foot 3 years ago and was in a boot for 2-3 months with resultant stiffness/dull pain. Pt denies recent falls and states last fall was in summer of 2020. She states she has a single point cane she uses to get in/ out of tub but not for walking . 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 Pt reports she often feels dizzy as well and was diagnosed with vertigo ~6 years ago after having an ear infection. Pt states she has episodes 5-6x a year and knows her limitations. Pt also reports lack of energy and strength in UE/LE since being diagnosed with liver disease and is unable to walk long distances. 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 Pt reports she would like to focus treatment on strength and gait/balance. 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
== END 2021-11-09 15:05 | disposition home or self-care (01) ==
LOC: PT 15:00
PROVIDERS: PCP Internal Medicine Adolescent Medicine; Visit Provider Internal Medicine Adolescent Medicine
DX: M54.9 Dorsalgia, unspecified (principal); G89.29 Other chronic pain; M62.81 Muscle weakness (generalized)
CPT/HCPCS: 97110; 97163; 97530; 97535

== ENCOUNTER 2021-11-18 08:47 | Outpatient (CLI) | payer OTHER, SELFPAY ==
--- NOTE | 2021-11-18 08:49 | US_ITS ---
FINAL REPORT CLINICAL HISTORY: ALCOHOLIC CIRROHOSIS OF LIVER W/ ASCITES 7600 ml drained FINDINGS: ULTRASOUND-GUIDED PARACENTESIS HISTORY: Ascites, alcoholic cirrhosis of the liver. ATTENDING PHYSICIAN: Dr. Gokul MD. PHYSICIAN ADVANCED PRACTICE NURSE: Mary Daniels PA-C. TECHNIQUE: Informed consent was obtained from the patient. Timeout procedure was performed prior to beginning. The patient was prepped and draped in routine fashion over the right lower quadrant. Local anesthesia was achieved with 1% lidocaine. Using imaging guidance with images acquired, an 18-gauge sheath needle was directed into the peritoneal fluid. Approximately 7.6 liters of clear yellow serous fluid was aspirated. No fluid was sent for laboratory analysis. IMPRESSION: Successful ultrasound guided therapeutic paracentesis with 7.6 liters of fluid removed. Reviewed, Interpreted and Dictated by Jason Hodgson III, MD Transcribed by Mary Daniels PA-C Authenticated and [facility]
[2021-11-18 08:58] VITALS: BMI 16.0
[2021-11-18 09:28] LABS: Creatinine Clearance Estimated 50 mL/min (50-200); Estimated Glomerular Filt Rate 66 ml/min (>60); GFR (African American) 80 ML/MIN (>60)
[2021-11-18 10:50] VITALS: BP 99/62; PULSE 90; RESP 18; O2SAT 100
[2021-11-18 12:05] VITALS: BP 99/73; PULSE 89; RESP 18
== END 2021-11-18 12:05 | disposition home or self-care (01) ==
PROVIDERS: PCP Internal Medicine Adolescent Medicine; Visit Provider Internal Medicine Adolescent Medicine
DX: K70.31 Alcoholic cirrhosis of liver with ascites (principal)
CPT/HCPCS: 49083; 82565; 96365; P9047

== ENCOUNTER 2021-12-02 08:40 | Outpatient (CLI) | payer OTHER, SELFPAY ==
[2021-12-02 08:47] VITALS: BMI 19.7
--- NOTE | 2021-12-02 08:47 | US_ITS ---
FINAL REPORT CLINICAL HISTORY: ASCITES rico solano-- 7400 ml FINDINGS: ULTRASOUND-GUIDED PARACENTESIS HISTORY: Ascites ATTENDING PHYSICIAN: Dr. Hodgson PHYSICIAN BINDER STRIPPER MACHINE: Rico Vásquez PA-C FINDINGS: After informed consent was obtained and timeout procedure performed, fluid was localized in the left lower quadrant under ultrasound guidance and marked on the skin appropriately. The patient was then prepped and draped in the usual sterile fashion and the skin was anesthetized with 1% lidocaine. An ultrasound guided paracentesis was then performed using a Turkel needle. Approximately 7.4 liters of clear yellow fluid was removed. No fluid was sent to lab. The patient tolerated the procedure well and there were no immediate complications. IMPRESSION: Ultrasound guided left lower quadrant paracentesis as discussed above. Films reviewed , interpreted and dictated by Dr. Hodgson. Transcribed by Rico Vásquez PA-C. Reviewed, Interpreted and Dictated by Jason Hodgson III, MD Transcribed by ARGELIA Giles Authenticated and . [facility]
[2021-12-02 09:26] LABS: Creatinine Clearance Estimated 55 mL/min (50-200); Estimated Glomerular Filt Rate 59 ml/min (>60); GFR (African American) 71 ML/MIN (>60)
[2021-12-02 10:26] VITALS: BP 103/58; PULSE 78; RESP 18; O2SAT 98
[2021-12-02 11:45] VITALS: BP 104/57; PULSE 82; RESP 18
== END 2021-12-02 11:45 | disposition home or self-care (01) ==
LOC: RAD 08:40 → INF 08:50
PROVIDERS: PCP Internal Medicine Adolescent Medicine; Visit Provider Internal Medicine Adolescent Medicine
DX: K70.31 Alcoholic cirrhosis of liver with ascites (principal)
CPT/HCPCS: 49083; 82565; 96365

== ENCOUNTER 2021-12-16 08:13 | Outpatient (CLI) | payer OTHER, SELFPAY ==
[2021-12-16 08:19] VITALS: BMI 19.7
--- NOTE | 2021-12-16 08:21 | US_ITS ---
FINAL REPORT CLINICAL HISTORY: CIRRHOSIS OF LIVER WITH ASCITES 8,500 ML DRAINED FROM LEFT SIDE FINDINGS: ULTRASOUND-GUIDED PARACENTESIS HISTORY: Ascites ATTENDING PHYSICIAN: Dr. Chew PHYSICIAN CUSTOMER CARE MANAGER: Rico Vásquez PA-C FINDINGS: After informed consent was obtained and timeout procedure performed, fluid was localized in the right lower quadrant under ultrasound guidance and marked on the skin appropriately. The patient was then prepped and draped in the usual sterile fashion and the skin was anesthetized with 1% lidocaine. An ultrasound guided paracentesis was then performed using a Turkel needle. Approximately 8.5 liters of clear yellow fluid was removed. No fluid was sent to lab. The patient tolerated the procedure well and there were no immediate complications. IMPRESSION: Ultrasound guided right lower quadrant paracentesis as discussed above. Films reviewed , interpreted and dictated by Dr. Chew. Transcribed by Rico Vásquez PA-C. Reviewed, Interpreted and Dictated by Suhas Chew MD Transcribed by ARGELIA Giles Authenticated and [facility]
[2021-12-16 08:46] LABS: Creatinine Clearance Estimated 50 mL/min (50-200); Estimated Glomerular Filt Rate 53 ml/min (>60); GFR (African American) 64 ML/MIN (>60)
[2021-12-16 11:05] VITALS: BP 91/61; PULSE 73; RESP 18; O2SAT 97
[2021-12-16 12:05] VITALS: BP 95/62; PULSE 76; RESP 18
== END 2021-12-16 12:05 | disposition home or self-care (01) ==
PROVIDERS: PCP Internal Medicine Adolescent Medicine; Visit Provider Internal Medicine Adolescent Medicine
DX: R18.8 Other ascites (principal)
CPT/HCPCS: 49083; 82565; 96365; P9047

== ENCOUNTER 2021-12-28 09:15 | Outpatient (CLI) | payer OTHER, SELFPAY ==
[2021-12-28 09:27] VITALS: BMI 17.2
--- NOTE | 2021-12-28 09:37 | US_ITS ---
FINAL REPORT CLINICAL HISTORY: ASCITES-- surjit solano -- 8500 ml FINDINGS: ULTRASOUND-GUIDED PARACENTESIS HISTORY: Ascites ATTENDING PHYSICIAN: Dr. High PHYSICIAN HOME ENERGY RATER: Surjit Harmon PA-C FINDINGS: After informed consent was obtained and timeout procedure performed, fluid was localized in the left lower quadrant under ultrasound guidance and marked on the skin appropriately. The patient was then prepped and draped in the usual sterile fashion and the skin was anesthetized with 1% lidocaine. An ultrasound guided paracentesis was then performed using a Turkel needle. Approximately 8.5 liters of clear yellow fluid was removed. No fluid was sent to lab. The patient tolerated the procedure well and there were no immediate complications. IMPRESSION: Ultrasound guided left lower quadrant paracentesis as discussed above. 8.5 liters of clear yellow fluid was removed. Films reviewed , interpreted and dictated by Dr. Ernestina High. Transcribed by Surjit Harmon PA-C. Reviewed, Interpreted and Dictated by Ernestina High MD Transcribed by ARGELIA Caldwell Authenticated and [facility]
[2021-12-28 09:59] LABS: Creatinine Clearance Estimated 48 mL/min (50-200); Estimated Glomerular Filt Rate 59 ml/min (>60); GFR (African American) 71 ML/MIN (>60)
[2021-12-28 11:50] VITALS: BP 92/57; PULSE 74; RESP 18; O2SAT 100
[2021-12-28 13:05] VITALS: BP 84/54; PULSE 77; RESP 18
== END 2021-12-28 13:05 | disposition home or self-care (01) ==
LOC: RAD 09:16 → INF 09:30
PROVIDERS: PCP Internal Medicine Adolescent Medicine; Visit Provider Internal Medicine Adolescent Medicine
DX: K70.31 Alcoholic cirrhosis of liver with ascites (principal)
CPT/HCPCS: 49083; 82565; 96365; P9047

== ENCOUNTER 2022-01-06 08:32 | Outpatient (CLI) | payer OTHER, SELFPAY ==
--- NOTE | 2022-01-06 08:36 | US_ITS ---
FINAL REPORT CLINICAL HISTORY: CIRRHOSIS OF LIVER WITH ASCITIES 7100 ml drained from left side FINDINGS: ULTRASOUND-GUIDED PARACENTESIS HISTORY: Ascites ATTENDING PHYSICIAN: Rico Vásquez PA-C PHYSICIAN INTERNAL AFFAIRS COMMANDER: Dr. Hodgson FINDINGS: After informed consent was obtained and timeout procedure performed, fluid was localized in the left lower quadrant under ultrasound guidance and marked on the skin appropriately. The patient was then prepped and draped in the usual sterile fashion and the skin was anesthetized with 1% lidocaine. An ultrasound guided paracentesis was then performed using a Turkel needle. Approximately 7.1 liters of clear yellow fluid was removed. No fluid was sent to lab. The patient tolerated the procedure well and there were no immediate complications. IMPRESSION: Ultrasound guided left lower quadrant paracentesis as discussed above. Films reviewed , interpreted and dictated by Dr. Hodgson. Transcribed by Rico Vásquez PA-C. Reviewed, Interpreted and Dictated by Jason Hodgson III, MD Transcribed by ARGELIA Giles Authenticated and [facility]
[2022-01-06 08:39] VITALS: BMI 16.9
[2022-01-06 09:00] LABS: Creatinine Clearance Estimated 52 mL/min (50-200); Estimated Glomerular Filt Rate 59 ml/min (>60); GFR (African American) 71 ML/MIN (>60)
[2022-01-06 11:20] VITALS: BP 142/102; PULSE 78; RESP 18; O2SAT 99
[2022-01-06 12:05] VITALS: BP 115/68; PULSE 80; RESP 18
== END 2022-01-06 12:05 | disposition home or self-care (01) ==
LOC: RAD 08:32 → INF 08:38
PROVIDERS: PCP Internal Medicine Adolescent Medicine; Visit Provider Internal Medicine Adolescent Medicine
DX: K70.31 Alcoholic cirrhosis of liver with ascites (principal)
CPT/HCPCS: 49083; 82565; 96365; P9047

== ENCOUNTER 2022-01-14 07:29 | Emergency (ER) | payer OTHER, SELFPAY ==
[2022-01-14] VITALS (7 sets, daily range): BP systolic 87–106; BP diastolic 55–73; PULSE 104–113; RESP 16–17; TEMP 36.9; O2SAT 99–100; BMI 16.0
--- NOTE | 2022-01-14 07:56 | HMH.EDNVD ---
ED Disposition Clinical Impression: Upper GI bleed, Cholecystitis Pancreatitis, alcoholic, acute Qualifiers: Acute pancreatitis complication: unspecified Qualified Code(s): K85.20 - Alcohol induced acute pancreatitis without necrosis or infection Disposition: Xfer Short-Term Hosp Condition on Discharge: Good Instructions: DI for Diarrhea and Traveler's Diarrhea -- Adult, DI for Diarrhea and Traveler's Diarrhea -- Child, DI for Nausea -- Adult, DI for Nausea -- Child Referrals: Provider,Referral, MD [Primary Care Provider] - - Critical Care Critical Care Time: Yes Attestation: On 01/14/22, the high probability of a clinically significant, sudden or life threatening deterioration of the following system(s) required my full and direct attention, intervention and personal management. The time I documented below is in addition to time spent performing reported procedures but includes the following listed in this critical care notation. Vital system(s) involved:: Circulatory Failure, Shock (Hemorrhage) My critical care processes included: Assessment & monitoring of V/S, Initial and Re-exams, Data Review/Interpretation, Coordinating Care, Medication Orders and management, Documentation Medical Decision Making - Medical Records Medical records reviewed: Yes: I reviewed the patient's medical records. - Adalid Inquiry Pt receiving controlled substance: No Vital Signs: 01/14/22 07:35 01/14/22 08:03 01/14/22 08:13 Temperature 98.5 F Temperature Source Oral Pulse Rate 110 H 109 H Pulse Rate [Left Radial] 113 H Respiratory Rate 17 16 Blood Pressure 87/55 L 87/59 L Blood Pressure [Right Arm] 90/64 L Blood Pressure Mean 67 Blood Pressure Mean [Right Arm] 72 02 Sat by Pulse Oximetry 100 99 99 01/14/22 08:30 01/14/22 09:15 01/14/22 09:30 Temperature Temperature Source Pulse Rate 107 H 110 H 105 H Pulse Rate [Left Radial] Respiratory Rate Blood Pressure 96/61 L 106/71 L 101/73 L Blood Pressure [Right Arm] Blood Pressure Mean 71 82 79 Blood Pressure Mean [Right Arm] 02 Sat by Pulse Oximetry 100 100 100 - Lab Data Lab Results 01/14/22 08:00: WBC 9.5, RBC 2.89 L, Hgb 8.1 L, Hct 25.0 L, MCV 86.6, MCH 28.1, MCHC 32.4, RDW 19.4 H, Plt Count 121 L, MPV 8.1, Neut % (Auto) 84.8 H, Lymph % (Auto) 10.1, Andrew % (Auto) 3.2, Eos % (Auto) 1.6, Baso % (Auto) 0.3, Neut # (Auto) 8.0 H, Lymph # (Auto) 1.0, Andrew # (Auto) 0.3, Eos # (Auto) 0.2, Baso # (Auto) 0.0 01/14/22 08:00: Sodium 136, Potassium 3.7, Chloride 101, Carbon Dioxide 25, Anion Gap 13.7, BUN 35 H, Creatinine 1.20 H, Estimated Creat Clear 41, Estimated GFR 48 L, Est GFR ( Amer) 58 L, Glucose 146 H, Calcium 8.5, Total Bilirubin 3.6 H, AST 107 H, ALT 32, Alkaline Phosphatase 338 H, Total Protein 6.6, Albumin 3.2 L, Globulin 3.4 H, Albumin/Globulin Ratio 0.9 L, Lipase 349 H 01/14/22 08:00: Plasma/Serum Alcohol < 10 01/14/22 08:00: PT 13.5 H, INR 1.21 H, APTT 28.3 01/14/22 08:05: Gastric Occult Blood Positive Result diagrams: 01/14/22 08:00 01/14/22 08:00 Orders (Tests/Meds): ED MEDICATIONS Generic Name Dose Route Start Last Admin Trade Name Freq PRN Reason Stop Dose Admin Octreotide Acetate 500 mcg/ 255 mls @ 25.5 mls/hr 01/14/22 08:15 01/14/22 08:27 Sodium Chloride IV 02/13/22 08:14 25.5 mls/hr .Q10H DEREK Administration 50 MCG/HR Sodium Chloride 10 ml 01/14/22 07:40 Sodium Chloride 0.9% 10ml Flush Syringe IV 02/13/22 07:39 NEEDED PRN Maintain IV Site Sodium Chloride 10 ml 01/14/22 07:56 Sodium Chloride 0.9% 10ml Vial IV 02/13/22 07:55 NEEDED PRN dilute protonix Sodium Chloride 10 ml 01/14/22 08:08 Sodium Chloride 0.9% 10ml Vial IV 02/13/22 08:07 NEEDED PRN dilute protonix Discontinued Medications Generic Name Dose Route Start Last Admin Trade Name Freq PRN Reason Stop Dose Admin Sodium Chloride 1,000 mls @ 999 mls/hr 01/14/22 07:45 01/14
--- NOTE | 2022-01-14 08:04 | ECG_ITS ---
APPROVED REPORT Exam: Resting ECG HR:108 bpm ECG Measurements Heart Rate 108 AXES [place] 137 P 51 QRSd 72 QRS 17 QT 339 T 62 QTc 403 Conclusion SINUS TACHYCARDIA LOW QRS VOLTAGE [QRS DEFLECTION < 0.5/1.0 mV IN LIMB/CHEST LEADS] POSSIBLE ANTERIOR MYOCARDIAL INFARCTION , PROBABLY OLD [30 ms Q WAVE IN V3/V4, OR R < 0.2 mV IN V4] ABNORMAL ECG UNCONFIRMED REPORT Electronically signed by : Mohinder Trujillo MD 01/16/2022 14:33:20
--- NOTE | 2022-01-14 08:04 | PC.NURSE ---
RN at BS
--- NOTE | 2022-01-14 08:07 | PC.NURSE ---
lab called to be her shortly for blood typing
--- NOTE | 2022-01-14 08:10 | PC.NURSE ---
blood sent to lab, warm blanket placed on pt shoulders
[2022-01-14 08:11] LABS: Occult Blood,Gastric Fluid Positive (Negative)
[2022-01-14 08:15] LABS: Basophils % 0.3 % (0.1-2.0); Eosinophils # 0.2 K/mm3 (0.0-0.4); Eosinophils % 1.6 % (0.1-12.0); Hemoglobin 8.1 g/dL (12.2-16.2); Lymphocytes % 10.1 % (10-50); Mean Corpuscular HGB Conc 32.4 g/dL (31.8-35.4); Mean Corpuscular Hemoglobin 28.1 pg (27.0-31.2); Mean Corpuscular Volume 86.6 fl (81-99); Mean Platelet Volume 8.1 fl (7.4-10.4); Monocytes # 0.3 K/mm3 (0.1-1.0); Monocytes % 3.2 % (1.7-9.3); Neutrophils % 84.8 % (37.0-80.0); Platelet Count 121 K/mm3 (142-424); Red Blood Count 2.89 M/mm3 (4.20-5.40); Red Cell Distribution Width 19.4 % (11.5-17.5); White Blood Count 9.5 K/mm3 (4.8-10.8)
--- NOTE | 2022-01-14 08:15 | PC.NURSE ---
pharmacy called and states they will mix drip
--- NOTE | 2022-01-14 08:18 | PC.NURSE ---
lab at the bedside collecting type and screen
[2022-01-14 08:31] LABS: Activated Partial Thrombo Time 28.3 seconds (22.8-30.6); INR 1.21 (0.9-1.1); Prothrombin Time 13.5 seconds (10.1-12.5)
[2022-01-14 08:33] LABS: Chloride 101 mmol/L (98-107); Potassium 3.7 mmoL/L (3.5-5.1); Sodium 136 mmol/L (136-145)
[2022-01-14 08:35] LABS: Alanine Aminotransferase 32 U/L (12-78); Aspartate Amino Transferase 107 U/L (14-36); Blood Urea Nitrogen 35 mg/dl (7-17); Creatinine Clearance Estimated 41 mL/min (50-200); Estimated Glomerular Filt Rate 48 ml/min (>60); GFR (African American) 58 ML/MIN (>60)
[2022-01-14 08:36] LABS: Albumin Level 3.2 g/dl (3.5-5.0); Albumin/Globulin Ratio 0.9 (1.1-1.8); Alkaline Phosphatase 338 U/L (38-126); Anion Gap 13.7 mEq/L (5-15); Bilirubin,Total 3.6 mg/dl (0.2-1.3); Calcium 8.5 mg/dl (8.4-10.2); Carbon Dioxide 25 mmol/L (22.0-30.0); Ethyl Alcohol < 10 mg/dl (0-10); Globulin 3.4 g/dL (1.3-3.2); Glucose 146 mg/dl (74-100); Lipase 349 U/L (23-300); Total Protein,Serum 6.6 g/dl (6.3-8.2)
--- NOTE | 2022-01-14 08:37 | CT_ITS ---
PROCEDURE INFORMATION: Exam: CT Abdomen And Pelvis Without Contrast Exam date and time: 01/14/2022 8:50 AM Age: 51 years old Clinical indication: Nausea and vomiting; Abdominal pain; Additional info: N/v/d, vomiting blood, hypogastric pain x 1 day TECHNIQUE: Imaging protocol: Computed tomography of the abdomen and pelvis without contrast. Radiation optimization: All CT scans at this facility use at least one of these dose optimization techniques: automated exposure control; mA and/or kV adjustment per patient size (includes targeted exams where dose is matched to clinical indication); or iterative reconstruction. COMPARISON: CT ABDOMEN PELVIS W CON 08/14/2021 4:07 PM FINDINGS: Detailed evaluation of the abdominal and pelvic viscera is somewhat limited in the absence of intravenous contrast. Inferior thorax: Interstitial prominence and trace basilar airspace disease. Fluid in the posterior mediastinum. Liver: Diffuse poorly defined hypodensity in the liver, in the setting of cirrhosis. Gallbladder and bile ducts: Markedly abnormal gallbladder with cholelithiasis, high attenuation bile, and mild wall thickening. Pancreas: No pancreatic mass or ductal dilatation. Spleen: Granulomata in the enlarged spleen, measuring 13.2 cm in length. Adrenal glands: Unremarkable adrenals. Kidneys and ureters: Right renal atrophy. No hydronephrosis. Stomach and bowel: Small bowel and colonic wall thickening. Prominent stool. Appendix: No acute appendicitis. Intraperitoneal space: Massive intraperitoneal fluid, along with infiltration of mesenteric fat. Vasculature: Vascular calcification. No abdominal aortic aneurysm. Lymph nodes: Subcentimeter lymph nodes. Urinary bladder: Nondistended bladder. Reproductive: Unremarkable as visualized. Bones/joints: Dextroscoliosis, degenerative change, Schmorl's nodes. Soft tissues: Atrophy of the anterior abdominal wall musculature. IMPRESSION: 1. Diffuse poorly defined hypodensity in the liver, in the setting of cirrhosis. 2. Markedly abnormal gallbladder with cholelithiasis, high attenuation bile, and mild wall thickening. 3. Massive intraperitoneal fluid, along with infiltration of mesenteric fat. 4. Small bowel and colonic wall thickening. 5. Additional findings as described above.
--- NOTE | 2022-01-14 08:37 | PC.NURSE ---
d/t renal function, CT to be done without contrast. aware
--- NOTE | 2022-01-14 08:43 | PC.NURSE ---
CYBER THREAT ANALYST ready to take to RADIOLOGY LAD staff obtaining blood for blood typing successfully
--- NOTE | 2022-01-14 08:45 | PC.NURSE ---
radiology called for CT
--- NOTE | 2022-01-14 08:50 | PC.NURSE ---
pt to ct via wheelchair
--- NOTE | 2022-01-14 09:02 | PC.NURSE ---
pt back from ct
--- NOTE | 2022-01-14 09:03 | PC.NURSE ---
calling [facility] to speak to GI
--- NOTE | 2022-01-14 09:03 | PC.NURSE ---
Calling [facility] MD's at this time.
--- NOTE | 2022-01-14 09:04 | PC.NURSE ---
calling [facility] for Transfer
--- NOTE | 2022-01-14 09:07 | PC.NURSE ---
pt back from rad
--- NOTE | 2022-01-14 09:07 | PC.NURSE ---
Requested for rad to power share images to [facility].
--- NOTE | 2022-01-14 09:08 | PC.NURSE ---
[facility] talking with ER MD for TRANSFER
--- NOTE | 2022-01-14 09:15 | PC.NURSE ---
Dr. Carrasco accepted pt to the ER
--- NOTE | 2022-01-14 09:45 | PC.NURSE ---
pt given ice chips per MD king
--- NOTE | 2022-01-14 09:46 | PC.NURSE ---
called report to [facility] charge, mariano
--- NOTE | 2022-01-14 09:47 | PC.NURSE ---
called [facility] for transport
--- NOTE | 2022-01-14 10:01 | PC.NURSE ---
called rad for disc of rad images
--- NOTE | 2022-01-14 10:11 | PC.NURSE ---
pt leaving for transfer to [facility]
== END 2022-01-14 10:16 | disposition short-term general hospital (02) ==
PROVIDERS: Emergency Provider Emergency Medicine
DX: K92.0 Hematemesis (principal); K81.9 Cholecystitis, unspecified; K85.20 Alcohol induced acute pancreatitis without necrosis or infection
CPT/HCPCS: 36415; 74176; 80053; 82272; 83690; 85025; 85610; 85730; 86850; 93005; 96361; 96365; 96375; 96376; 99285; G0328; J2354; J2405

== ENCOUNTER 2022-01-30 08:22 | Outpatient (CLI) | payer OTHER, SELFPAY ==
--- NOTE | 2022-01-30 08:26 | US_ITS ---
FINAL REPORT CLINICAL HISTORY: ASCITES 8 liters drained FINDINGS: ULTRASOUND-GUIDED PARACENTESIS HISTORY:Ascites ATTENDING PHYSICIAN: Dr. Chew PHYSICIAN CLAIM REPRESENTATIVE: Lincoln Harmon PA-C FINDINGS: After informed consent was obtained and timeout procedure performed, fluid was localized in the right lower quadrant under ultrasound guidance and marked on the skin appropriately. The patient was then prepped and draped in the usual sterile fashion and the skin was anesthetized with 1% lidocaine. An ultrasound guided paracentesis was then performed using a Turkel needle. Approximately 8 liters of fluid was removed. No fluid was sent to lab. The patient tolerated the procedure well and there were no immediate complications. IMPRESSION: Ultrasound guided right lower quadrant paracentesis as discussed above. Films reviewed , interpreted and dictated by Dr. Hodgson Transcribed by Lincoln Harmon PA-C. Reviewed, Interpreted and Dictated by Jason Hodgson III, MD Transcribed by ARGELIA Caldwell Authenticated and [facility]
[2022-01-30 08:29] VITALS: BMI 18.0
[2022-01-30 08:49] LABS: Creatinine Clearance Estimated 42 mL/min (50-200); Estimated Glomerular Filt Rate 48 ml/min (>60); GFR (African American) 58 ML/MIN (>60)
[2022-01-30 10:35] VITALS: BP 87/58; PULSE 71; RESP 18; O2SAT 96
[2022-01-30 12:20] VITALS: BP 110/76; PULSE 68; RESP 18
== END 2022-01-30 12:20 | disposition home or self-care (01) ==
LOC: RAD 08:22 → INF 08:35
PROVIDERS: Visit Provider Internal Medicine Adolescent Medicine
DX: K70.31 Alcoholic cirrhosis of liver with ascites (principal)
CPT/HCPCS: 49083; 82565; 96365; P9047

== ENCOUNTER 2022-02-08 09:08 | Outpatient (CLI) | payer OTHER, SELFPAY ==
[2022-02-08 09:16] VITALS: BMI 16.7
--- NOTE | 2022-02-08 09:22 | US_ITS ---
FINAL REPORT CLINICAL HISTORY: ASCITIES 6200 ml DRAINED FINDINGS: ULTRASOUND-GUIDED PARACENTESIS HISTORY: Ascites. ATTENDING PHYSICIAN: Dr. Hodgson PHYSICIAN BOX BUILDER: Mary Daniels PA-C FINDINGS: After informed consent was obtained and timeout procedure performed, fluid was localized in the left lower quadrant under ultrasound guidance and marked on the skin appropriately. The patient was then prepped and draped in the usual sterile fashion and the skin was anesthetized with 1% lidocaine. An ultrasound guided paracentesis was then performed using a Turkel needle. Approximately 6.2 L of clear yellow fluid was removed. The patient tolerated the procedure well and there were no immediate complications. IMPRESSION: Ultrasound guided LLQ paracentesis as discussed above. Reviewed, Interpreted and Dictated by Jason Hodgson III, MD Transcribed by Mary Daniels PA-C Authenticated and [facility]
[2022-02-08 09:51] LABS: Creatinine Clearance Estimated 37 mL/min (50-200); Estimated Glomerular Filt Rate 40 ml/min (>60); GFR (African American) 48 ML/MIN (>60)
[2022-02-08 11:15] VITALS: BP 141/92; PULSE 66; RESP 18; O2SAT 99
[2022-02-08 12:30] VITALS: BP 86/49; PULSE 72; RESP 18
== END 2022-02-08 12:30 | disposition home or self-care (01) ==
LOC: RAD 09:09 → INF 09:15
PROVIDERS: PCP Internal Medicine Adolescent Medicine; Visit Provider Internal Medicine Adolescent Medicine
DX: K70.31 Alcoholic cirrhosis of liver with ascites (principal)
CPT/HCPCS: 49083; 82565; 96365; P9047

== ENCOUNTER 2022-02-14 16:41 | Emergency (ER) | payer OTHER, SELFPAY ==
[2022-02-14] VITALS (8 sets, daily range): BP systolic 108–123; BP diastolic 71–90; PULSE 90–97; RESP 14; TEMP 36.6–36.7; O2SAT 96–97; BMI 16.0
--- NOTE | 2022-02-14 17:30 | CT_ITS ---
PROCEDURE INFORMATION: Exam: CT Abdomen And Pelvis Without Contrast Exam date and time: 02/14/22 06:00 PM Age: 51 years old Clinical indication: Abdominal pain; Additional info: Abd pain, vomiting TECHNIQUE: Imaging protocol: Computed tomography of the abdomen and pelvis without contrast. Radiation optimization: All CT scans at this facility use at least one of these dose optimization techniques: automated exposure control; mA and/or kV adjustment per patient size (includes targeted exams where dose is matched to clinical indication); or iterative reconstruction. COMPARISON: CT ABDOMEN PELVIS WO CON 01/14/22 08:50 AM FINDINGS: Tubes, catheters and devices: None noted. Lungs: Lung bases appear clear. Heart: No significant coronary calcifications. No cardiomegaly. No significant pericardial effusion. Liver: Heterogeneous attenuation. Suspect cirrhosis. No mass. Gallbladder and bile ducts: Cholelithiasis. No ductal dilation. Pancreas: Normal. No ductal dilation. Spleen: Moderate splenomegaly. Calcified granulomata. Adrenal glands: Normal. No mass. Kidneys and ureters: Normal. No hydronephrosis. Stomach and bowel: Unremarkable. No obstruction. No mucosal thickening. Appendix: No evidence of appendicitis. Intraperitoneal space: Massive ascites. No free air. Retroperitoneal space: No significant retroperitoneal inflammatory changes are noted. Vasculature: Unremarkable. No abdominal aortic aneurysm. Lymph nodes: Unremarkable. No enlarged lymph nodes. Urinary bladder: Unremarkable as visualized. Reproductive: Unremarkable as visualized. Bones/joints: Unremarkable. No acute fracture. Soft tissues: Unremarkable. IMPRESSION: 1. Cirrhosis with splenomegaly and portal hypertension. 2. Massive ascites increasing since comparison. 3. Cholelithiasis.
[2022-02-14 17:38] LABS: Basophils % 0.5 % (0.1-2.0); Eosinophils % 0.2 % (0.1-12.0); Hematocrit 33.1 % (37.0-47.0); Hemoglobin 10.6 g/dL (12.2-16.2); Lymphocytes # 1.3 K/mm3 (0.7-4.5); Lymphocytes % 17.5 % (10-50); Mean Corpuscular HGB Conc 32.2 g/dL (31.8-35.4); Mean Corpuscular Hemoglobin 29.5 pg (27.0-31.2); Mean Corpuscular Volume 91.8 fl (81-99); Mean Platelet Volume 7.8 fl (7.4-10.4); Monocytes # 0.9 K/mm3 (0.1-1.0); Monocytes % 11.8 % (1.7-9.3); Neutrophils # 5.3 K/mm3 (1.8-7.8); Platelet Count 220 K/mm3 (142-424); Red Cell Distribution Width 20.4 % (11.5-17.5); White Blood Count 7.6 K/mm3 (4.8-10.8)
[2022-02-14 17:45] LABS: Alanine Aminotransferase 22 U/L (12-78); Albumin Level 3.6 g/dl (3.5-5.0); Alkaline Phosphatase 368 U/L (38-126); Anion Gap 20.6 mEq/L (5-15); Aspartate Amino Transferase 97 U/L (14-36); Bilirubin,Total 1.6 mg/dl (0.2-1.3); Blood Urea Nitrogen 14 mg/dl (7-17); Calcium 8.8 mg/dl (8.4-10.2); Carbon Dioxide 23 mmol/L (22.0-30.0); Chloride 100 mmol/L (98-107); Creatinine Clearance Estimated 61 mL/min (50-200); Estimated Glomerular Filt Rate 76 ml/min (>60); GFR (African American) 92 ML/MIN (>60); Globulin 3.6 g/dL (1.3-3.2); Glucose 91 mg/dl (74-100); Potassium 3.6 mmoL/L (3.5-5.1); Sodium 140 mmol/L (136-145); Total Protein,Serum 7.2 g/dl (6.3-8.2)
--- NOTE | 2022-02-14 21:02 | PC.NURSE ---
PT REPOSITIONED FOR COMFORT. NO ACUTE DISTRESS NOTED.
--- NOTE | 2022-02-14 21:08 | HMH.EDGENADL ---
Discharge Plan Disposition Patient Disposition: Left Against Medical Advice Condition: Fair Chief Complaint: Headache Prescriptions Prescriptions: No Action gabapentin 300 mg capsule 300 mg PO DAILY ursodiol 250 mg tablet 250 mg PO DAILY ursodiol 500 mg tablet 500 mg PO DAILY Label Comments: TAKE 1 TABLET BY MOUTH TWICE DAILY midodrine 10 mg tablet 10 mg PO TID potassium chloride 20 mEq tablet extended release 20 meq PO DAILY famotidine 20 mg tablet 20 mg PO DAILY Label Comments: TAKE 1 TABLET BY MOUTH TWICE DAILY propranolol 20 mg tablet 20 mg PO BID Label Comments: TAKE 1 TABLET BY MOUTH TWICE DAILY levothyroxine [Euthyrox] 125 mcg tablet 125 mcg PO DAILY Label Comments: TAKE 1 TABLET BY MOUTH ONCE DAILY mirtazapine 15 mg tablet 15 mg PO DAILY Label Comments: TAKE 1 TABLET BY MOUTH ONCE DAILY AT BEDTIME pantoprazole 40 mg tablet,delayed release (DR/EC) 40 mg PO DAILY Label Comments: TAKE 1 TABLET BY MOUTH IN THE MORNING BEFORE BREAKFAST, DO NOT CHEW, CRUSH, OR SPLIT lorazepam 0.5 mg tablet 0.5 mg PO BID Label Comments: TAKE 1 TABLET BY MOUTH TWICE DAILY ondansetron HCl 8 mg tablet 8 mg PO TID Label Comments: TAKE 1 TABLET BY MOUTH THREE TIMES DAILY bupropion HCl 150 mg tablet extended release 24 hr 150 mg PO DAILY lactulose [Constulose] 10 gram/15 mL solution 10 ml PO valacyclovir 1,000 MG tablet 1,000 mg PO NEEDED PRN (Reason: antiviral) spironolactone 100 MG tablet 100 mg PO DAILY citalopram 20 MG tablet 20 mg PO DAILY furosemide 20 MG tablet 20 mg PO BID ibuprofen 600 MG tablet 600 mg PO Q6 lactulose 20 GM/30 ML solution 30 ml PO DAILY mirabegron 25 MG tablet extended release 24 hr 25 mg PO DAILY albuterol sulfate 90 MCG aerosol powdr breath activated 90 mcg PO Q4-6H Referrals Follow up/Referrals: Mohinder Trujillo MD [Primary Care Provider] - See instructions Activity Restrictions/Add. Instructions Additional Instructions/Restrictions: You have been evaluated for body aches, headache, abdominal pain, ascites. I have recommended paracentesis tonight, you have decided you will follow-up with your doctor on Sunday. Please take all medications as prescribed. Return to the emergency department at once if you would like to continue medical treatment or if you develop any fevers, vomiting, other concerns. Clinical Impressions Clinical Impression: Alcoholic cirrhosis of liver with ascites, Abdominal pain Instructions Patient Instructions: DI for Ascites Discharge ED Provider: Stephanie Horan Adult HPI General Chief complaint: Headache Stated complaint: ramos,vOMITING,ABD PAIN SHAKING Time Seen by Provider: 02/14/22 20:00 Mode of Arrival: Wheelchair Source of Information: Patient Limitations: No Limitations Description of Symptoms (Recalled from ER Triage Doc. by RN): Pt c/o vomiting, RAMOS, abd pain that began a few hours ago History of Present Illness HPI narrative: 51-year-old female presenting to the emergency department with headache, back pain, joint pain, body aches, nausea, vomiting, abdominal pain. Symptoms started a few hours ago. She felt generally unwell, achy all days since hse woke up. She is a headache that is described as all over her head, throbbing. She also has pain that is located the joints of her arms and legs, also in her low back. Radiates toward the front of her abdomen. She does not have pain in 1 particular part of the abdomen. She has a history of liver failure with ascites, scheduled for a paracentesis this Sunday. Most recent paracentesis was last week at [facility]. She has felt nauseous. Had vomiting. She tried Zofran at home prior to arrival. Took Tylenol for pain. Does no have other pain medication at home. She denies recent illness, fevers, chills. No constipa
[2022-02-14 22:00] LABS: Lipase 146 U/L (23-300)
[2022-02-14 22:10] LABS: Ethyl Alcohol 46 mg/dl (0-10)
--- NOTE | 2022-02-14 23:42 | PC.NURSE ---
Pt's ride home here at this time.
== END 2022-02-14 23:42 | disposition left against medical advice (07) ==
PROVIDERS: Emergency Medicine; Emergency Provider Emergency Medicine; PCP Internal Medicine Adolescent Medicine
DX: K70.31 Alcoholic cirrhosis of liver with ascites (principal); R51.9 Headache, unspecified; Z53.29 Procedure and treatment not carried out because of patient's decision for other reasons
CPT/HCPCS: 74176; 80053; 83690; 85025; 96374; 96375; 96376; 99284

== ENCOUNTER 2022-02-17 07:57 | Outpatient (CLI) | payer OTHER, SELFPAY ==
--- NOTE | 2022-02-17 08:02 | US_ITS ---
FINAL REPORT CLINICAL HISTORY: ASCITES Rico STOUT 6500ml removed FINDINGS: ULTRASOUND-GUIDED PARACENTESIS HISTORY: Ascites ATTENDING PHYSICIAN: Dr. Hodgson PHYSICIAN IN FLIGHT REFUELING CRAFTSMAN: Rico Vásquez PA-C FINDINGS: After informed consent was obtained and timeout procedure performed, fluid was localized in the right lower quadrant under ultrasound guidance and marked on the skin appropriately. The patient was then prepped and draped in the usual sterile fashion and the skin was anesthetized with 1% lidocaine. An ultrasound guided paracentesis was then performed using a Turkel needle. Approximately 6.5 liters of clear yellow fluid was removed. No fluid was sent to lab. The patient tolerated the procedure well and there were no immediate complications. IMPRESSION: Ultrasound guided right lower quadrant paracentesis as discussed above. Films reviewed , interpreted and dictated by Dr. Hodgson. Transcribed by Rico Vásquez PA-C. Reviewed, Interpreted and Dictated by Jason Hodgson III, MD Transcribed by ARGELIA Giles Authenticated and [facility]
[2022-02-17 08:13] VITALS: BMI 16.5
[2022-02-17 09:08] LABS: Creatinine Clearance Estimated 22 mL/min (50-200); Estimated Glomerular Filt Rate 24 ml/min (>60); GFR (African American) 29 ML/MIN (>60)
[2022-02-17 10:18] VITALS: BP 81/55; PULSE 69; RESP 18; O2SAT 100
[2022-02-17 11:30] VITALS: BP 83/57; PULSE 72; RESP 18
[2022-02-17 13:00] VITALS: BP 93/55; PULSE 73; RESP 18
== END 2022-02-17 13:00 | disposition home or self-care (01) ==
LOC: RAD 07:57 → INF 08:34
PROVIDERS: PCP Internal Medicine Adolescent Medicine; Visit Provider Internal Medicine Adolescent Medicine
DX: K70.31 Alcoholic cirrhosis of liver with ascites (principal)
CPT/HCPCS: 49083; 82565; 96365; 96366; P9047

== ENCOUNTER 2022-02-24 08:27 | Outpatient (CLI) | payer OTHER, SELFPAY ==
--- NOTE | 2022-02-24 08:35 | US_ITS ---
FINAL REPORT CLINICAL HISTORY: ASCITES 5 liters drained FINDINGS: ULTRASOUND-GUIDED PARACENTESIS HISTORY:Ascites ATTENDING PHYSICIAN: Dr. Chew PHYSICIAN SUPERVISOR ELECTRIC: Lincoln Harmon PA-C FINDINGS: After informed consent was obtained and timeout procedure performed, fluid was localized in the right lower quadrant under ultrasound guidance and marked on the skin appropriately. The patient was then prepped and draped in the usual sterile fashion and the skin was anesthetized with 1% lidocaine. An ultrasound guided paracentesis was then performed using a Turkel needle. Approximately 5 liters of fluid was removed. No fluid was sent to lab. The patient tolerated the procedure well and there were no immediate complications. IMPRESSION: Ultrasound guided right lower quadrant paracentesis as discussed above. Films reviewed , interpreted and dictated by Dr. Chew. Transcribed by Lincoln Harmon PA-C. Reviewed, Interpreted and Dictated by Suhas Chew MD Transcribed by ARGELIA Caldwell Authenticated and [facility]
[2022-02-24 09:02] VITALS: BMI 16.6
[2022-02-24 09:41] LABS: Creatinine Clearance Estimated 64 mL/min (50-200); Estimated Glomerular Filt Rate 76 ml/min (>60); GFR (African American) 92 ML/MIN (>60)
--- NOTE | 2022-02-24 11:00 | PC.NURSE ---
1100-per pharmacy pt does not need albumin replacement today.
== END 2022-02-24 11:45 | disposition home or self-care (01) ==
LOC: RAD 08:27 → INF 10:43
PROVIDERS: PCP Internal Medicine Adolescent Medicine; Visit Provider Internal Medicine Adolescent Medicine
DX: K70.31 Alcoholic cirrhosis of liver with ascites (principal)
CPT/HCPCS: 36415; 49083; 82565

== ENCOUNTER 2022-03-08 10:06 | Outpatient (CLI) | payer OTHER, SELFPAY ==
--- NOTE | 2022-03-08 10:09 | US_ITS ---
FINAL REPORT CLINICAL HISTORY: CIRRHOSIS OF LIVER 6500 ML drained from abdomen FINDINGS: ULTRASOUND-GUIDED PARACENTESIS HISTORY: Ascites ATTENDING PHYSICIAN: Dr. Hodgson PHYSICIAN RAND TACKER: Lincoln Harmon PA-C FINDINGS: After informed consent was obtained and timeout procedure performed, fluid was localized in the right lower quadrant under ultrasound guidance and marked on the skin appropriately. The patient was then prepped and draped in the usual sterile fashion and the skin was anesthetized with 1% lidocaine. An ultrasound guided paracentesis was then performed using a Turkel needle. Approximately 6.5 liters of clear yellow fluid was removed. No fluid was sent to lab. The patient tolerated the procedure well and there were no immediate complications. IMPRESSION: Ultrasound guided right lower quadrant paracentesis as discussed above. Films reviewed , interpreted and dictated by Dr. Hodgson Transcribed by Lincoln Harmon PA-C. Reviewed, Interpreted and Dictated by Jason Hodgson III, MD Transcribed by ARGELIA Caldwell Authenticated and [facility]
[2022-03-08 10:12] VITALS: BMI 18.0
[2022-03-08 10:42] LABS: Creatinine Clearance Estimated 42 mL/min (50-200); Estimated Glomerular Filt Rate 48 ml/min (>60); GFR (African American) 58 ML/MIN (>60)
[2022-03-08 12:35] VITALS: BP 122/79; PULSE 89; RESP 18; TEMP 36.3; O2SAT 100
[2022-03-08 15:24] VITALS: BP 119/85; PULSE 87; RESP 18
== END 2022-03-08 14:00 | disposition home or self-care (01) ==
LOC: RAD 10:06 → INF 10:33
PROVIDERS: PCP Internal Medicine Adolescent Medicine; Visit Provider Internal Medicine Adolescent Medicine
DX: K70.31 Alcoholic cirrhosis of liver with ascites (principal)
CPT/HCPCS: 49083; 82565; 96365; P9047

== ENCOUNTER 2022-03-17 08:43 | Outpatient (CLI) | payer OTHER, SELFPAY ==
--- NOTE | 2022-03-17 08:44 | US_ITS ---
FINAL REPORT CLINICAL HISTORY: .ASCITES-- RICO MAKI 7000 ML FINDINGS: ULTRASOUND-GUIDED PARACENTESIS Attending radiologist: Dr. Hodgson Physician Welding Machine Operator Plasma Arc: Rico Maki PA-C Procedure: The right abdomen was prepped and routine sterile fashion. Appropriate pocket was localized for drainage. The patient was prepped and draped in routine fashion. Local anesthesia was achieved with 1% lidocaine. Using imaging guidance with images acquired, a Turkel needle was directed into the peritoneal fluid. Approximately 7 liters of yellow serous fluid was aspirated. No fluid was sent for laboratory analysis. IMPRESSION: Successful ultrasound guided therapeutic paracentesis with 3 liters of fluid removed. Images reviewed, interpreted and dictated by Dr. Longoria. Transcribed by Rico Maki PA-C Reviewed, Interpreted and Dictated by Jason Hodgson III, MD Transcribed by ARGELIA Giles Authenticated and [facility]
[2022-03-17 08:50] VITALS: BMI 15.2
[2022-03-17 09:11] LABS: Creatinine Clearance Estimated 31 mL/min (50-200); Estimated Glomerular Filt Rate 37 ml/min (>60); GFR (African American) 44 ML/MIN (>60)
[2022-03-17 10:25] VITALS: BP 101/42; PULSE 79; RESP 18; O2SAT 100
[2022-03-17 12:00] VITALS: BP 135/49; PULSE 72; RESP 18
== END 2022-03-17 12:00 | disposition home or self-care (01) ==
PROVIDERS: PCP Family Medicine; Visit Provider Family Medicine
DX: K70.31 Alcoholic cirrhosis of liver with ascites (principal)
CPT/HCPCS: 49083; 82565; 96365; P9047

== ENCOUNTER 2022-03-24 10:26 | Outpatient (CLI) | payer OTHER, SELFPAY ==
[2022-03-24 10:37] VITALS: BMI 18.0
--- NOTE | 2022-03-24 10:57 | US_ITS ---
FINAL REPORT CLINICAL HISTORY: ASCITES-- 6299-- mary solano FINDINGS: ULTRASOUND-GUIDED PARACENTESIS HISTORY: Cirrhosis, ascites. ATTENDING PHYSICIAN: Dr. Hodgson PHYSICIAN SLIDING JOINT MAKER: Mary Daniels PA-C FINDINGS: After informed consent was obtained and timeout procedure performed, fluid was localized in the right lower quadrant under ultrasound guidance and marked on the skin appropriately. The patient was then prepped and draped in the usual sterile fashion and the skin was anesthetized with 1% lidocaine. An ultrasound guided paracentesis was then performed using a Turkel needle. Approximately 6.3 L of clear yellow fluid was removed. The patient tolerated the procedure well and there were no immediate complications. IMPRESSION: Ultrasound guided RLQ paracentesis as discussed above. Reviewed, Interpreted and Dictated by Jason Hodgson III, MD Transcribed by Mary Daniels PA-C Authenticated and [facility]
[2022-03-24 11:24] LABS: Creatinine Clearance Estimated 56 mL/min (50-200); Estimated Glomerular Filt Rate 66 ml/min (>60); GFR (African American) 80 ML/MIN (>60)
[2022-03-24 12:51] VITALS: BP 105/58; PULSE 70; RESP 16; TEMP 36.4; O2SAT 97
[2022-03-24 13:32] VITALS: BP 108/53; PULSE 72; RESP 16; TEMP 36.4; O2SAT 97
== END 2022-03-24 13:40 | disposition home or self-care (01) ==
LOC: RAD 10:49 → INF 12:47
PROVIDERS: PCP Family Medicine; Visit Provider Family Medicine
DX: K70.31 Alcoholic cirrhosis of liver with ascites (principal)
CPT/HCPCS: 49083; 82565; 96365; P9047

== ENCOUNTER 2022-03-31 10:28 | Outpatient (CLI) | payer OTHER, SELFPAY ==
[2022-03-31 10:38] VITALS: BMI 16.8
--- NOTE | 2022-03-31 10:41 | US_ITS ---
FINAL REPORT CLINICAL HISTORY: ASCITES 6100---Vince STOUT FINDINGS: ULTRASOUND-GUIDED PARACENTESIS HISTORY: Ascites. ATTENDING PHYSICIAN: Dr. Hodgson PHYSICIAN PARIMUTUEL CLERK: Mary Daniels PA-C FINDINGS: After informed consent was obtained and timeout procedure performed, fluid was localized in the left lower quadrant under ultrasound guidance and marked on the skin appropriately. The patient was then prepped and draped in the usual sterile fashion and the skin was anesthetized with 1% lidocaine. An ultrasound guided paracentesis was then performed using a Turkel needle. Approximately 6.1 L of clear yellow fluid was removed. No fluid was sent to the lab for analysis. The patient tolerated the procedure well and there were no immediate complications. IMPRESSION: Ultrasound guided LLQ paracentesis as discussed above. Reviewed, Interpreted and Dictated by Jason Hodgson III, MD Transcribed by Mary Daniels PA-C Authenticated and [facility]
[2022-03-31 11:05] LABS: Creatinine Clearance Estimated 58 mL/min (50-200); Estimated Glomerular Filt Rate 76 ml/min (>60); GFR (African American) 92 ML/MIN (>60)
[2022-03-31 12:50] VITALS: BP 100/91; PULSE 82; RESP 18; O2SAT 100
[2022-03-31 13:40] VITALS: BP 103/69; PULSE 84; RESP 18
== END 2022-03-31 13:40 | disposition home or self-care (01) ==
PROVIDERS: PCP Family Medicine; Visit Provider Family Medicine
DX: K70.31 Alcoholic cirrhosis of liver with ascites (principal)
CPT/HCPCS: 49083; 82565; 96365; P9047

== ENCOUNTER 2022-04-12 09:38 | Outpatient (CLI) | payer OTHER, SELFPAY ==
--- NOTE | 2022-04-12 09:42 | US_ITS ---
FINAL REPORT CLINICAL HISTORY: ASCITES 8000ml removed by Rico STOUT FINDINGS: ULTRASOUND-GUIDED PARACENTESIS HISTORY: Ascites ATTENDING PHYSICIAN: Dr. Chew PHYSICIAN JACQUARD LOOM CARD CHANGER: Rico Vásquez PA-C FINDINGS: After informed consent was obtained and timeout procedure performed, fluid was localized in the right lower quadrant under ultrasound guidance and marked on the skin appropriately. The patient was then prepped and draped in the usual sterile fashion and the skin was anesthetized with 1% lidocaine. An ultrasound guided paracentesis was then performed using a Turkel needle. Approximately 8 liters of clear yellow fluid was removed. No fluid was sent to lab. The patient tolerated the procedure well and there were no immediate complications. IMPRESSION: Ultrasound guided right lower quadrant paracentesis as discussed above. Films reviewed , interpreted and dictated by Dr. Chew. Transcribed by Rico Vásquez PA-C. Reviewed, Interpreted and Dictated by Suhas Chew MD Transcribed by ARGELIA Giles Authenticated and [facility]
[2022-04-12 09:47] VITALS: BMI 16.8
[2022-04-12 11:21] LABS: Creatinine Clearance Estimated 39 mL/min (50-200); Estimated Glomerular Filt Rate 47 ml/min (>60); GFR (African American) 57 ML/MIN (>60)
[2022-04-12 11:27] LABS: Chloride 97 mmol/L (98-107); Potassium 3.7 mmoL/L (3.5-5.1); Sodium 133 mmol/L (136-145)
[2022-04-12 11:29] LABS: Alanine Aminotransferase 28 U/L (12-78); Alkaline Phosphatase 320 U/L (38-126); Aspartate Amino Transferase 95 U/L (14-36); Bilirubin,Total 0.9 mg/dl (0.2-1.3)
[2022-04-12 11:30] LABS: Albumin Level 3.1 g/dl (3.5-5.0); Albumin/Globulin Ratio 0.9 (1.1-1.8); Anion Gap 15.7 mEq/L (5-15); Blood Urea Nitrogen 22 mg/dl (7-17); Calcium 8.7 mg/dl (8.4-10.2); Carbon Dioxide 24 mmol/L (22.0-30.0); Globulin 3.4 g/dL (1.3-3.2); Glucose 90 mg/dl (74-100); Total Protein,Serum 6.5 g/dl (6.3-8.2)
[2022-04-12 11:55] VITALS: BP 133/81; PULSE 95; RESP 18; O2SAT 100
[2022-04-12 12:12] LABS: Basophils % 0.3 % (0.1-2.0); Eosinophils % 0.2 % (0.1-12.0); Hematocrit 30.8 % (37.0-47.0); Hemoglobin 9.5 g/dL (12.2-16.2); Lymphocytes # 1.5 K/mm3 (0.7-4.5); Lymphocytes % 18.3 % (10-50); Mean Corpuscular HGB Conc 30.8 g/dL (31.8-35.4); Mean Corpuscular Hemoglobin 28.7 pg (27.0-31.2); Mean Corpuscular Volume 93.4 fl (81-99); Mean Platelet Volume 7.2 fl (7.4-10.4); Monocytes # 0.7 K/mm3 (0.1-1.0); Monocytes % 8.2 % (1.7-9.3); Neutrophils # 5.8 K/mm3 (1.8-7.8); Neutrophils % 72.8 % (37.0-80.0); Platelet Count 230 K/mm3 (142-424); Red Cell Distribution Width 19.9 % (11.5-17.5)
[2022-04-12 12:23] LABS: INR 1.16 (0.9-1.1); Prothrombin Time 12.4 seconds (10.1-12.5)
[2022-04-12 13:45] VITALS: BP 119/75; PULSE 94; RESP 18
== END 2022-04-12 13:45 | disposition home or self-care (01) ==
LOC: RAD 09:38 → INF 10:46
PROVIDERS: Student in an Organized Health Care Education/Training Program; PCP Family Medicine; Visit Provider Family Medicine
DX: K70.31 Alcoholic cirrhosis of liver with ascites (principal)
CPT/HCPCS: 49083; 80053; 85025; 85610; 96365; P9047

== ENCOUNTER 2022-04-21 10:09 | Outpatient (CLI) | payer OTHER, SELFPAY ==
--- NOTE | 2022-04-21 10:15 | US_ITS ---
FINAL REPORT CLINICAL HISTORY: ASCITES, 7100ml elizabeth minaya FINDINGS: ULTRASOUND-GUIDED PARACENTESIS HISTORY: Cirrhosis, Ascites. ATTENDING PHYSICIAN: Dr. Chew PHYSICIAN TURN SEWER: Mary Minaya PA-C FINDINGS: After informed consent was obtained and timeout procedure performed, fluid was localized in the left lower quadrant under ultrasound guidance and marked on the skin appropriately. The patient was then prepped and draped in the usual sterile fashion and the skin was anesthetized with 1% lidocaine. An ultrasound guided paracentesis was then performed using a Turkel needle. Approximately 7.1 L of clear yellow fluid was removed. The patient tolerated the procedure well and there were no immediate complications. IMPRESSION: Ultrasound guided LLQ paracentesis as discussed above. Reviewed, Interpreted and Dictated by Suhas Chew MD Transcribed by Mary Minaya PA-C Authenticated and [facility]
[2022-04-21 10:35] VITALS: BMI 18.0
[2022-04-21 10:51] LABS: Creatinine Clearance Estimated 31 mL/min (50-200); Estimated Glomerular Filt Rate 34 ml/min (>60); GFR (African American) 41 ML/MIN (>60)
[2022-04-21 12:40] VITALS: BP 115/70; PULSE 76; RESP 18; O2SAT 99
[2022-04-21 13:10] VITALS: BP 112/71; PULSE 72; RESP 18; TEMP 36.4; O2SAT 98
[2022-04-21 13:40] VITALS: BP 122/68; PULSE 68; RESP 18; O2SAT 99
[2022-04-21 14:10] VITALS: BP 124/71; PULSE 72; RESP 18; O2SAT 100
[2022-04-21 14:40] VITALS: BP 121/69; PULSE 70; RESP 18; O2SAT 100
== END 2022-04-21 15:05 | disposition home or self-care (01) ==
PROVIDERS: PCP Family Medicine; Visit Provider Family Medicine
DX: K70.31 Alcoholic cirrhosis of liver with ascites (principal)
CPT/HCPCS: 49083; 82565; 96365; 96366; P9047

== ENCOUNTER 2022-04-26 09:17 | Outpatient (CLI) | payer OTHER, SELFPAY ==
[2022-04-26 09:22] VITALS: BMI 16.8
--- NOTE | 2022-04-26 09:24 | US_ITS ---
FINAL REPORT CLINICAL HISTORY: ASCITES, elizabeth minaya 5400 ml FINDINGS: ULTRASOUND-GUIDED PARACENTESIS HISTORY: Cirrhosis, ascites. ATTENDING PHYSICIAN: Dr. Hodgson PHYSICIAN WORKFORCE PLANNING ANALYST: Mary Minaya PA-C FINDINGS: After informed consent was obtained and timeout procedure performed, fluid was localized in the left lower quadrant under ultrasound guidance and marked on the skin appropriately. The patient was then prepped and draped in the usual sterile fashion and the skin was anesthetized with 1% lidocaine. An ultrasound guided paracentesis was then performed using a Turkel needle. Approximately 5.4 L of clear yellow fluid was removed. The patient tolerated the procedure well and there were no immediate complications. IMPRESSION: Ultrasound guided LLQ paracentesis as discussed above. Reviewed, Interpreted and Dictated by Jason Hodgson III, MD Transcribed by Mary Minaya PA-C Authenticated and [facility]
[2022-04-26 09:40] LABS: Creatinine Clearance Estimated 36 mL/min (50-200); Estimated Glomerular Filt Rate 43 ml/min (>60); GFR (African American) 52 ML/MIN (>60)
[2022-04-26 11:35] VITALS: BP 108/63; PULSE 74; RESP 18; O2SAT 100
[2022-04-26 12:45] VITALS: BP 102/60; PULSE 78; RESP 18
== END 2022-04-26 12:45 | disposition home or self-care (01) ==
PROVIDERS: PCP Family Medicine; Visit Provider Family Medicine
DX: K70.31 Alcoholic cirrhosis of liver with ascites (principal)
CPT/HCPCS: 49083; 82565; 96365

== ENCOUNTER 2022-05-05 10:12 | Outpatient (CLI) | payer OTHER, SELFPAY ==
[2022-05-05 10:22] VITALS: BMI 17.7
--- NOTE | 2022-05-05 10:29 | US_ITS ---
FINAL REPORT CLINICAL HISTORY: ASCITES 6100ml removed by Rico STOUT FINDINGS: ULTRASOUND-GUIDED PARACENTESIS HISTORY: Ascites ATTENDING PHYSICIAN: Dr. Chew. PHYSICIAN RN BURN: Rico Vásquez PA-C FINDINGS: After informed consent was obtained and timeout procedure performed, fluid was localized in the right lower quadrant under ultrasound guidance and marked on the skin appropriately. The patient was then prepped and draped in the usual sterile fashion and the skin was anesthetized with 1% lidocaine. An ultrasound guided paracentesis was then performed using a Turkel needle. Approximately 6.1 liters of clear yellow fluid was removed. No fluid was sent to lab. The patient tolerated the procedure well and there were no immediate complications. IMPRESSION: Ultrasound guided right lower quadrant paracentesis as discussed above. Films reviewed , interpreted and dictated by Dr. Chew. Transcribed by Rico Vásquez PA-C. Reviewed, Interpreted and Dictated by Suhas Chew MD Transcribed by ARGELIA Giles Authenticated and [facility][1]
[2022-05-05 11:02] LABS: Creatinine Clearance Estimated 23 mL/min (50-200); Estimated Glomerular Filt Rate 22 ml/min (>60); GFR (African American) 27 ML/MIN (>60)
[2022-05-05 11:57] VITALS: BP 105/65; PULSE 71; RESP 18; O2SAT 99
[2022-05-05 12:33] VITALS: BP 110/64; PULSE 67; RESP 18; O2SAT 99
[2022-05-05 13:16] VITALS: BP 103/64; PULSE 71; RESP 18; TEMP 36.3; O2SAT 99
[2022-05-05 13:47] VITALS: BP 107/62; PULSE 68; RESP 18; O2SAT 99
[2022-05-05 14:20] VITALS: BP 109/63; PULSE 70; RESP 18; O2SAT 99
== END 2022-05-05 14:45 | disposition home or self-care (01) ==
PROVIDERS: PCP Family Medicine; Visit Provider Family Medicine
DX: K70.31 Alcoholic cirrhosis of liver with ascites (principal)
CPT/HCPCS: 49083; 82565; 96365; 96366; P9047

== ENCOUNTER 2022-05-07 11:26 | Emergency (ER) | payer OTHER, SELFPAY ==
[2022-05-07 11:41] VITALS: BP 106/70; PULSE 101; RESP 16; TEMP 37; O2SAT 100; BMI 15.6
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
[2022-05-07 12:54] VITALS: BP 106/70; PULSE 101; RESP 16; TEMP 37
== END 2022-05-07 12:55 | disposition home or self-care (01) ==
PROVIDERS: Emergency Provider Nurse Practitioner Family; PCP Internal Medicine Adolescent Medicine
DX: T23.121A Burn of first degree of single right finger (nail) except thumb, initial encounter (principal); T24.112A Burn of first degree of left thigh, initial encounter; T31.0 Burns involving less than 10% of body surface; X12.XXXA Contact with other hot fluids, initial encounter; Y93.G3 Activity, cooking and baking
CPT/HCPCS: 99212; G0463

== ENCOUNTER 2022-05-12 08:44 | Outpatient (CLI) | payer OTHER, SELFPAY ==
[2022-05-12 08:49] VITALS: BMI 18.0
--- NOTE | 2022-05-12 08:49 | US_ITS ---
FINAL REPORT CLINICAL HISTORY: ASCITES, S FLO STOUT, 5100 ML FINDINGS: ULTRASOUND-GUIDED PARACENTESIS HISTORY: Cirrhosis, ascites. ATTENDING PHYSICIAN: Dr. Hodgson PHYSICIAN HOSIERY KNITTER: Mary Daniels PA-C FINDINGS: After informed consent was obtained and timeout procedure performed, fluid was localized in the left lower quadrant under ultrasound guidance and marked on the skin appropriately. The patient was then prepped and draped in the usual sterile fashion and the skin was anesthetized with 1% lidocaine. An ultrasound guided paracentesis was then performed using a Turkel needle. Approximately 5.1 L of clear yellow fluid was removed. The patient tolerated the procedure well and there were no immediate complications. IMPRESSION: Ultrasound guided LLQ paracentesis as discussed above. Reviewed, Interpreted and Dictated by Jason Hodgson III, MD Transcribed by Mary Daniels PA-C Authenticated and [facility]
[2022-05-12 09:21] LABS: Creatinine Clearance Estimated 13 mL/min (50-200); Estimated Glomerular Filt Rate 12 ml/min (>60); GFR (African American) 15 ML/MIN (>60)
[2022-05-12 11:23] VITALS: BP 98/58; PULSE 84; RESP 18; TEMP 36.4; O2SAT 98
[2022-05-12 13:30] VITALS: BP 102/51; PULSE 90; RESP 18
== END 2022-05-12 13:30 | disposition home or self-care (01) ==
PROVIDERS: PCP Internal Medicine Adolescent Medicine; Visit Provider Family Medicine
DX: K70.31 Alcoholic cirrhosis of liver with ascites (principal)
CPT/HCPCS: 49083; 82565; 96360; 96366; 96367; P9047

== ENCOUNTER 2022-05-16 17:49 | Emergency (ER) | payer OTHER, SELFPAY ==
[2022-05-16 19:46] VITALS: BP 0/0; PULSE 0; RESP 0; TEMP -17.7; TEMP 0
== END 2022-05-16 19:57 | disposition left against medical advice (07) ==
LOC: ER 19:48
PROVIDERS: Emergency Provider Emergency Medicine; PCP Internal Medicine Adolescent Medicine
DX: Z53.21 Procedure and treatment not carried out due to patient leaving prior to being seen by health care provider (principal)

== ENCOUNTER 2022-05-19 08:44 | Outpatient (CLI) | payer OTHER, SELFPAY ==
[2022-05-19 08:49] VITALS: BMI 17.2
--- NOTE | 2022-05-19 08:50 | US_ITS ---
FINAL REPORT CLINICAL HISTORY: ASCITES, RICO STOUT 6350ML FINDINGS: ULTRASOUND-GUIDED PARACENTESIS HISTORY: Ascites ATTENDING PHYSICIAN: Dr. Hodgson PHYSICIAN VP DIRECTOR OF FINANCE: Rico Vásquez PA-C FINDINGS: After informed consent was obtained and timeout procedure performed, fluid was localized in the left lower quadrant under ultrasound guidance and marked on the skin appropriately. The patient was then prepped and draped in the usual sterile fashion and the skin was anesthetized with 1% lidocaine. An ultrasound guided paracentesis was then performed using a Turkel needle. Approximately 6.4 liters of clear yellow fluid was removed. No fluid was sent to lab. The patient tolerated the procedure well and there were no immediate complications. IMPRESSION: Ultrasound guided left lower quadrant paracentesis as discussed above. Films reviewed , interpreted and dictated by Dr. Hodgson. Transcribed by Rico Vásquez PA-C. Reviewed, Interpreted and Dictated by Jason Hodgson III, MD Transcribed by ARGELIA Giles Authenticated and [facility]
[2022-05-19 09:14] LABS: Creatinine Clearance Estimated 17 mL/min (50-200); Estimated Glomerular Filt Rate 16 ml/min (>60); GFR (African American) 20 ML/MIN (>60)
--- NOTE | 2022-05-19 10:20 | PC.NURSE ---
1020-notified md with creatinine level 3.0 and that pt did not f/u with repeat labs on sunday as directed per md;today give ns 500ml bolus iv
[2022-05-19 10:45] VITALS: BP 112/51; PULSE 79; RESP 18; TEMP 36.4; O2SAT 100
[2022-05-19 11:55] VITALS: RESP 18
[2022-05-19 13:20] VITALS: BP 98/66; PULSE 89; RESP 18
== END 2022-05-19 13:20 | disposition home or self-care (01) ==
PROVIDERS: PCP Internal Medicine Adolescent Medicine; Visit Provider Family Medicine
DX: K70.31 Alcoholic cirrhosis of liver with ascites (principal)
CPT/HCPCS: 49083; 82565; 96360; 96361; 96367; P9047

== ENCOUNTER 2022-05-21 16:57 | Emergency (ER) | payer OTHER, SELFPAY ==
[2022-05-21] VITALS (16 sets, daily range): BP systolic 92–116; BP diastolic 55–72; PULSE 72–101; RESP 16–18; TEMP 36.4–36.9; O2SAT 94–100; BMI 15.6
--- NOTE | 2022-05-21 17:01 | XR_ITS ---
PROCEDURE INFORMATION: Exam: XR Right Femur Exam date and time: 05/21/2022 5:23 PM Age: 52 years old Clinical indication: Injury or trauma; Blunt trauma; Patient HX: Fall and right hip pain TECHNIQUE: Imaging protocol: Radiologic exam of the Right femur. Views: 2 views. COMPARISON: CT ABDOMEN PELVIS WO CON 02/14/2022 6:00 PM FINDINGS: Bones/joints: Acute and comminuted inter trochanteric fractures of the proximal right femur with extension through basicervical level of the neck. Varus angulation and override. Soft tissues: Soft tissue swelling and deformity. IMPRESSION: Acute and comminuted inter trochanteric fractures of the proximal right femur with extension through basicervical level of the neck. Varus angulation and override.
--- NOTE | 2022-05-21 17:01 | XR_ITS ---
PROCEDURE INFORMATION: Exam: XR Pelvis Exam date and time: 05/21/2022 5:23 PM Age: 52 years old Clinical indication: Injury or trauma; Blunt trauma (contusions or hematomas); Patient HX: Fall and right hip pain TECHNIQUE: Imaging protocol: Radiologic exam of the pelvis. Views: 1 or 2 view. COMPARISON: CT ABDOMEN PELVIS WO CON 02/14/2022 6:00 PM FINDINGS: Bones/joints: Acute and comminuted inter trochanteric fracture proximal right femur with override and varus angulation. Soft tissues: Unremarkable. Gastrointestinal tract: Possible ileus. IMPRESSION: 1. Acute and comminuted inter trochanteric fracture proximal right femur with override and varus angulation. 2. Possible ileus.
--- NOTE | 2022-05-21 17:15 | PC.NURSE ---
1715 PT TO XR
--- NOTE | 2022-05-21 17:22 | CT_ITS ---
PROCEDURE INFORMATION: Exam: CT Right Lower Extremity Without Contrast, Hip Exam date and time: 05/21/2022 5:28 PM Age: 52 years old Clinical indication: Injury or trauma; Blunt trauma; Patient HX: Fall and right hip pain TECHNIQUE: Imaging protocol: CT of the Right lower extremity without contrast was performed. Exam focused on the hip. 3D rendering (Not supervised by radiologist): MIP and/or 3D reconstructed images were created by the technologist. Radiation optimization: All CT scans at this facility use at least one of these dose optimization techniques: automated exposure control; mA and/or kV adjustment per patient size (includes targeted exams where dose is matched to clinical indication); or iterative reconstruction. COMPARISON: CT ABDOMEN PELVIS WO CON 02/14/2022 6:00 PM FINDINGS: Bones/joints: Acute and comminuted inter trochanteric fractures with extension through the basicervical level of the femoral neck with override and varus angulation. Soft tissues: Surrounding soft tissue swelling and infiltrative hemorrhage. Intraperitoneal space: Large amount of ascites. IMPRESSION: 1. Acute and comminuted inter trochanteric fractures with extension through the basicervical level of the femoral neck with override and varus angulation. 2. Large amount of ascites.
--- NOTE | 2022-05-21 17:32 | PC.NURSE ---
pt in radiology
--- NOTE | 2022-05-21 17:58 | [facility].EDGENADL ---
Discharge Plan Disposition Patient Disposition: Xfer Short-Term Hosp Condition: Serious Prescriptions Prescriptions: No Action gabapentin 300 mg capsule 300 mg PO DAILY midodrine 10 mg tablet 10 mg PO TID potassium chloride 20 mEq tablet extended release 20 meq PO DAILY famotidine 20 mg tablet 20 mg PO DAILY Label Comments: TAKE 1 TABLET BY MOUTH TWICE DAILY propranolol 20 mg tablet 20 mg PO BID Label Comments: TAKE 1 TABLET BY MOUTH TWICE DAILY levothyroxine [Euthyrox] 125 mcg tablet 125 mcg PO DAILY Label Comments: TAKE 1 TABLET BY MOUTH ONCE DAILY mirtazapine 15 mg tablet 15 mg PO DAILY Label Comments: TAKE 1 TABLET BY MOUTH ONCE DAILY AT BEDTIME pantoprazole 40 mg tablet,delayed release (DR/EC) 40 mg PO DAILY Label Comments: TAKE 1 TABLET BY MOUTH IN THE MORNING BEFORE BREAKFAST, DO NOT CHEW, CRUSH, OR SPLIT lorazepam 0.5 mg tablet 0.5 mg PO BID Label Comments: TAKE 1 TABLET BY MOUTH TWICE DAILY ondansetron HCl 8 mg tablet 8 mg PO TID Label Comments: TAKE 1 TABLET BY MOUTH THREE TIMES DAILY bupropion HCl 150 mg tablet extended release 24 hr 150 mg PO DAILY promethazine 12.5 mg tablet See Rx Instructions .ROUTE .COMPLEX Qty: 60 0RF Dose Instruction: TAKE 1 TABLET BY MOUTH EVERY 6 HOURS NEEDED FOR NAUSEA AND VOMITING Rx Instructions: TAKE 1 TABLET BY MOUTH EVERY 6 HOURS NEEDED FOR NAUSEA AND VOMITING valacyclovir 1,000 MG tablet 1,000 mg PO NEEDED PRN (Reason: antiviral) spironolactone 100 MG tablet 100 mg PO DAILY furosemide 20 MG tablet 20 mg PO BID lactulose 20 GM/30 ML solution 30 ml PO DAILY mirabegron 25 MG tablet extended release 24 hr 25 mg PO DAILY albuterol sulfate 90 MCG aerosol powdr breath activated 90 mcg PO Q4-6H mupirocin 2 % ointment 1 applic topical TID 7 Days Qty: 22 1RF amoxicillin-pot clavulanate 500-125 mg tablet 1 tab PO BID Qty: 20 0RF fluconazole [Diflucan] 150 mg tablet 150 mg PO ONCE Qty: 1 2RF Referrals Follow up/Referrals: Mohinder Trujillo MD [Primary Care Provider] - See instructions Clinical Impressions Clinical Impression: Closed fracture of right hip, Anemia, Cirrhosis of liver with ascites, BERNADINE (acute kidney injury) Discharge ED Provider: Agustin Iglesias General Adult HPI General Chief complaint: Fall Stated complaint: pain R hip Time Seen by Provider: 05/21/22 18:02 Mode of Arrival: EMS Limitations: No Limitations Description of Symptoms (Recalled from ER Triage Doc. by RN): PT FELL OUTSIDE IN DRIVEWAY. HELPED INSIDE BY NEIGHBORS, ATTEMPTED TO GET UP ONCE IN HOUSE, FELL AGAIN. C/O RIGHT HIP PAIN. History of Present Illness HPI narrative: Patient states that she tripped and fell outside in her driveway. She was helped in by 2 men who were at a nearby laundromat. She says they moved into her kitchen but she could not get up off of the floor. She says she only laid there for 5 or 6 minutes before she was moved. She complains of severe pain in her right hip. She denies any other injury. She did not hit her head, did not hurt her neck, did not hurt her chest or abdomen. She has cirrhosis. She gets paracentesis weekly. She says her creatinine has been climbing. She most recently got paracentesis 2 days ago on Sunday. She says she is supposed to see her liver specialist at [facility] in June. She says she does not yet have a kidney specialist. Related Data Home Medications Medication Instructions Recorded Confirmed albuterol sulfate 90 mcg/actuation 90 mcg PO Q4-6H Asthma 07/14/21 03/09/22 breath activated powder inhaler furosemide 20 mg tablet 20 mg PO BID Fluid 07/14/21 03/09/22 lactulose 20 gram/30 mL oral 30 ml PO DAILY liver disease 07/14/21 03/09/22 solution mirabegron 25 mg tablet,extended 25 mg PO DAILY bladder 07/14/21 03/09/22 r
--- NOTE | 2022-05-21 18:00 | XR_ITS ---
PROCEDURE INFORMATION: Exam: XR Chest Exam date and time: 05/21/2022 6:21 PM Age: 52 years old Clinical indication: Injury or trauma; Fall; Blunt trauma (contusions or hematomas); Additional info: Hip FX TECHNIQUE: Imaging protocol: Radiologic exam of the chest. Views: 1 view. COMPARISON: CR XR CHEST 2V 09/26/2021 1:27 PM FINDINGS: Lungs: Old granulomatous disease. No lobar consolidation, pleural effusion or pulmonary edema. Pleural spaces: See Lungs finding. Heart/Mediastinum: Unremarkable. No cardiomegaly. Bones/joints: Chronic appearing fracture right 7th rib. IMPRESSION: 1. No lobar consolidation, pleural effusion or pulmonary edema. 2. Chronic appearing fracture right 7th rib.
--- NOTE | 2022-05-21 18:09 | PC.NURSE ---
called for whom ever was [employer] scout for ortho
--- NOTE | 2022-05-21 18:10 | PC.NURSE ---
hernandez tinoco on the phone with dr sanders
[2022-05-21 18:26] LABS: Alanine Aminotransferase 20 U/L (12-78); Albumin Level 3.5 g/dl (3.5-5.0); Albumin/Globulin Ratio 1.3 (1.1-1.8); Alkaline Phosphatase 285 U/L (38-126); Anion Gap 15.2 mEq/L (5-15); Aspartate Amino Transferase 72 U/L (14-36); Bilirubin,Total 0.5 mg/dl (0.2-1.3); Blood Urea Nitrogen 34 mg/dl (7-17); Calcium 7.9 mg/dl (8.4-10.2); Carbon Dioxide 21 mmol/L (22.0-30.0); Chloride 103 mmol/L (98-107); Creatinine Clearance Estimated 30 mL/min (50-200); Estimated Glomerular Filt Rate 34 ml/min (>60); GFR (African American) 41 ML/MIN (>60); Globulin 2.6 g/dL (1.3-3.2); Glucose 86 mg/dl (74-100); INR 1.06 (0.9-1.1); Potassium 3.2 mmoL/L (3.5-5.1); Prothrombin Time 11.4 seconds (10.1-12.5); Sodium 136 mmol/L (136-145); Total Protein,Serum 6.1 g/dl (6.3-8.2)
[2022-05-21 18:27] LABS: Basophils % 0.4 % (0.1-2.0); Eosinophils % 0.4 % (0.1-12.0); Lymphocytes # 1.3 K/mm3 (0.7-4.5); Lymphocytes % 15.6 % (10-50); Mean Corpuscular HGB Conc 32.9 g/dL (31.8-35.4); Mean Corpuscular Hemoglobin 28.7 pg (27.0-31.2); Mean Corpuscular Volume 87.3 fl (81-99); Mean Platelet Volume 7.9 fl (7.4-10.4); Monocytes # 0.6 K/mm3 (0.1-1.0); Monocytes % 6.6 % (1.7-9.3); Neutrophils # 6.6 K/mm3 (1.8-7.8); Platelet Count 267 K/mm3 (142-424); Red Blood Count 2.37 M/mm3 (4.20-5.40); Red Cell Distribution Width 18.1 % (11.5-17.5); White Blood Count 8.5 K/mm3 (4.8-10.8)
[2022-05-21 18:28] LABS: Hemoglobin 6.8 g/dL (12.2-16.2)
[2022-05-21 18:29] LABS: Hematocrit 20.7 % (37.0-47.0)
--- NOTE | 2022-05-21 18:38 | PC.NURSE ---
[facility] CALLED AT THIS TIME
--- NOTE | 2022-05-21 18:45 | PC.NURSE ---
on phone with [facility] about transferring pt to higher level of care
--- NOTE | 2022-05-21 18:49 | PC.NURSE ---
called [facility] to power share results with [facility], [facility] will call back when they have a dr available to call
--- NOTE | 2022-05-21 18:52 | CT_ITS ---
PROCEDURE INFORMATION: Exam: CT Abdomen And Pelvis Without Contrast Exam date and time: 05/21/2022 7:06 PM Age: 52 years old Clinical indication: Injury or trauma; Fall; Blunt; Generalized; Additional info: Fall, anemia TECHNIQUE: Imaging protocol: Computed tomography of the abdomen and pelvis without contrast. Radiation optimization: All CT scans at this facility use at least one of these dose optimization techniques: automated exposure control; mA and/or kV adjustment per patient size (includes targeted exams where dose is matched to clinical indication); or iterative reconstruction. COMPARISON: CT ABDOMEN PELVIS WO CON 02/14/2022 6:00 PM FINDINGS: Liver: Cirrhotic appearing contour to the liver again evident. Gallbladder and bile ducts: Distended gallbladder with stones and limited gallbladder wall calcifications. Pancreas: Normal. No ductal dilation. Spleen: Mildly enlarged spleen. Adrenal glands: Normal. No mass. Kidneys and ureters: Normal. No hydronephrosis. Stomach and bowel: Unremarkable. No obstruction. No mucosal thickening. Appendix: No evidence of appendicitis. Intraperitoneal space: Large amount of ascites. Vasculature: Moderate atherosclerosis. Lymph nodes: Unremarkable. No enlarged lymph nodes. Urinary bladder: Unremarkable as visualized. Reproductive: Unremarkable as visualized. Bones/joints: Acute and comminuted inter trochanteric fracture proximal right femur with extension through basicervical level of the neck. Override and varus angulation. Soft tissues: The parenchymal organs are intact without laceration. Other findings: Study limited by lack of contrast. Limited collateral circulation. IMPRESSION: 1. Study limited by lack of contrast. 2. The parenchymal organs are intact without laceration. 3. Distended gallbladder with stones and limited gallbladder wall calcifications. 4. Acute and comminuted inter trochanteric fracture proximal right femur with extension through basicervical level of the neck. Override and varus angulation. 5. Large amount of ascites.
--- NOTE | 2022-05-21 19:05 | PC.NURSE ---
[facility] calling back dr terry is calling back
--- NOTE | 2022-05-21 19:07 | PC.NURSE ---
DR. BENITEZ SPEAKING WITH [facility]
--- NOTE | 2022-05-21 19:12 | PC.NURSE ---
PT ACCEPTED PER DR. JONES AT ED
[2022-05-21 19:53] LABS: Coronavirus 19, PCR Not Detected (NotDetected); Influenza A, PCR Not Detected (NotDetected); Influenza B, PCR Not Detected (NotDetected)
--- NOTE | 2022-05-21 20:23 | PC.NURSE ---
Updated Denis at [facility] regarding patient condition. Patient is currently getting a blood transfusion of 1 unit.
--- NOTE | 2022-05-21 20:39 | PC.NURSE ---
Infusion rate increased to 200ml/hr
--- NOTE | 2022-05-21 21:51 | PC.NURSE ---
[facility] arrived to [facility] at approx 2140 to transfer patient to [facility] ER. At that time the patient stated that she has too much to do and can't go to . We informed the patient that it was ill advised to medically refuse this transfer due to her hip fracture. We informed patient that she isn't able to walk and patient states I can walk if I go slow . Patient states that she has a neighbor who can fully lift her if she needs the assistance. Again, we advised the patient that she was in very real danger of medically deteriorating if she left and didn't go to . Patient states that it doesn't matter, that she isn't worried about her hip, shes only worried about her life . We informed the patient that the two can be connected with a fracture of this severity. Patient insists she would rather go home. Patient asks if she will have a little something at the pharmacy tomorrow and she was informed by the MD that she will not be given a rx for pain medication from an ER standpoint. Patient was advised that for rx pain medication she would be required to follow up with her pcp. Patient has called a friend requesting that she be picked up from the emergency room.
--- NOTE | 2022-05-21 22:15 | PC.NURSE ---
Pt's friends and a second friend are here to help pt home. As they see pt's leg they are concerned about taking her to her home. They are speaking with pt as well and with pt's permission were shown her radiographs. Pt still maintains she wants to leave and friends are helping her into a wheelchair. Pt requesting pain medications. states as she is leaving AMA he is unable to prescribe her any for home. Pt advised to seek treatment with orthopedics as soon as possible. She is aware she may have risk of bleeding, loss of limb, or d/t the nature of her fracture. She states she is fully aware. Friends are aware. They helped pt into a wheelchair and proceeded to get her home. Updated Denis at ER on these events.
== END 2022-05-21 22:36 | disposition left against medical advice (07) ==
PROVIDERS: Emergency Provider Emergency Medicine; PCP Internal Medicine Adolescent Medicine
DX: S72.101A Unspecified trochanteric fracture of right femur, initial encounter for closed fracture (principal); J10.1 Influenza due to other identified influenza virus with other respiratory manifestations; R07.2 Precordial pain; R06.02 Shortness of breath; R05.9 Cough, unspecified; Z20.822 Contact with and (suspected) exposure to COVID-19; K76.6 Portal hypertension; D64.9 Anemia, unspecified; R11.0 Nausea; I11.9 Hypertensive heart disease without heart failure; N17.9 Acute kidney failure, unspecified; I25.10 Atherosclerotic heart disease of native coronary artery without angina pectoris; I48.0 Paroxysmal atrial fibrillation; I70.1 Atherosclerosis of renal artery; I83.90 Asymptomatic varicose veins of unspecified lower extremity; E11.9 Type 2 diabetes mellitus without complications; E06.3 Autoimmune thyroiditis; K70.31 Alcoholic cirrhosis of liver with ascites; L65.9 Nonscarring hair loss, unspecified; F17.210 Nicotine dependence, cigarettes, uncomplicated; F32.A Depression, unspecified; F41.9 Anxiety disorder, unspecified; Z79.4 Long term (current) use of insulin; Z79.82 Long term (current) use of aspirin; Z79.899 Other long term (current) drug therapy; Z88.1 Allergy status to other antibiotic agents; Z88.2 Allergy status to sulfonamides; Z88.3 Allergy status to other anti-infective agents; Z88.7 Allergy status to serum and vaccine; Z88.8 Allergy status to other drugs, medicaments and biological substances; Z95.0 Presence of cardiac pacemaker; W01.198A Fall on same level from slipping, tripping and stumbling with subsequent striking against other object, initial encounter; Y92.093 Driveway of other non-institutional residence as the place of occurrence of the external cause
CPT/HCPCS: 36415; 51702; 71045; 72170; 73552; 73700; 74176; 80053; 85025; 85610; 86850; 96361; 96374; 96375; 99283; 99284; C9803; J2405; P9016; U0003; U0005